=== PATIENT | male | born 1980 | race Caucasian/White ===

== ENCOUNTER 2020-06-14 11:41 | Emergency (ER) | payer OTHER ==
[2020-06-14] MEDS ORDERED: SODIUM CHLORIDE 0.9% 500 ML 500 ML IV ONE (12:17)
[2020-06-14] MEDS ORDERED: SODIUM CHLORIDE 0.9% 1,000 ML IV ONE (12:17)
[2020-06-14 12:23] LABS: Basophils % (A) 0 %; Eosinophils # (A) 0.5 k/uL (0-0.7); Eosinophils % (A) 6 %; HCT 40.5 % (39.0-53.0); HGB 13.3 gm/dL (13.0-17.5); Lymphocytes # (A) 1.9 k/uL (1.0-4.8); Lymphocytes % (A) 25 %; MCH 30.3 pg (25.0-35.0); MCHC 32.8 g/dL (31.0-37.0); MCV 92.3 fL (80.0-100.0); Mean Platelet Volume 9.3; Monocytes # (A) 0.5 k/uL (0-1.0); Monocytes % (A) 6 %; Neutrophils # (A) 4.6 k/uL (1.3-7.7); Neutrophils % (A) 61 %; Platelet Count 145 k/uL (150-450); RBC 4.39 m/uL (4.30-5.90); WBC 7.6 k/uL (3.8-10.6)
[2020-06-14] MEDS ORDERED: SODIUM CHLORIDE 0.9% 1,000 ML IV SCH (12:30)
[2020-06-14 12:34] LABS: ALT 30 U/L (4-49); AST 27 U/L (17-59); African American GFR (CKD) >90 (>60 ml/min/1.73 sqM); Albumin 4.2 g/dL (3.5-5.0); Alkaline Phosphatase 92 U/L (38-126); Anion Gap 5 mmol/L; Blood Urea Nitrogen 18 mg/dL (9-20); Calcium 9.7 mg/dL (8.4-10.2); Carbon Dioxide 27 mmol/L (22-30); Chloride 108 mmol/L (98-107); Glucose 110 mg/dL (74-99); Magnesium 2.1 mg/dL (1.6-2.3); Non-African American GFR(CKD) >90 (>60 ml/min/1.73 sqM); Potassium 3.9 mmol/L (3.5-5.1); Sodium 140 mmol/L (137-145); Total Bilirubin 0.3 mg/dL (0.2-1.3); Total Protein 6.9 g/dL (6.3-8.2)
[2020-06-14] MEDS ORDERED: ONDANSETRON 4 MG/2 ML VIAL IVP STA (12:41)
--- NOTE | 2020-06-14 13:32 | XR ---
EXAMINATION TYPE: XR abdomen acute w cxr DATE OF EXAM: 06/14/2020 COMPARISON: NONE HISTORY: Pain TECHNIQUE: Supine, upright, and left side down lateral decubitus views of the abdomen are obtained. FINDINGS: The lungs are clear. No pleural effusion or pneumothorax. No overt failure. The bowel gas pattern is nonspecific with no obstruction. Calcifications along the lateral margin the acetabulum can be associated with chronic acetabular labral tears. A mild concentric narrowing of th e hip joints. SI joints symmetric. Punctate calcification overlying the left kidney. IMPRESSION: Nonspecific abdomen. There is a punctate 1 to 2 mm calcification overlying the left renal outline whi ch could be associated with a small renal calculus correlate clinically.
--- NOTE | 2020-06-14 13:51 | ED ---
Nausea/Vomiting/Diarrhea HPI - General Source: patient Mode of arrival: ambulatory Limitations: no limitations <Daniela Lara - Last Filed: 06/15/20 06:07> <Nafisa Staples - Last Filed: 06/15/20 21:38> - General Chief complaint: Nausea/Vomiting/Diarrhea Stated complaint: vomiting x 7 days Time Seen by Provider: 06/14/20 11:58 - History of Present Illness Initial comments: 39yo male presnting today for cc of vomiting. Patient states he has been vomiting on and off x 7 days. He denies abdominal pain, bloody vomit, fevers, diarrhea, URI symptoms. Patient states he felt warm 1 night ago Denies flank pain, blood in urine or dysuria. Patient states he is going through a break up and feels the vomiting could be related to anxiety and stress. Denies chest pain, SOB, denies epigastric pain. Patient denies suicidal/homicidal ideations. Denies additional complaints. Upon arrival patient appears well no signs of distress. (Daniela Lara) - Related Data Home Medications Medication Instructions Recorded Confirmed No Known Home Medications 06/14/20 06/14/20 Allergies Allergy/AdvReac Type Severity Reaction Status Date / Time No Known Allergies Allergy Verified 06/14/20 13:23 Review of Systems ROS Other: All systems not noted in ROS Statement are negative. <Daniela Lara - Last Filed: 06/15/20 06:07> ROS Other: All systems not noted in ROS Statement are negative. <Nafisa Staples - Last Filed: 06/15/20 21:38> ROS Statement: Those systems with pertinent positive or pertinent negative responses have been documented in the HPI. Past Medical History Past Medical History: No Reported History History of Any Multi-Drug Resistant Organisms: None Reported Past Surgical History: No Surgical Hx Reported Past Psychological History: No Psychological Hx Reported Smoking Status: Current every day smoker Past Alcohol Use History: None Reported Past Drug Use History: Marijuana <Daniela Lara - Last Filed: 06/15/20 06:07> General Exam Limitations: no limitations <Daniela Lara - Last Filed: 06/15/20 06:07> - General Exam Comments Initial Comments: General: The patient is awake and alert, in no distress Eye: +3 mm pupils are equal, round and reactive to light, extra-ocular movements are intact. No nystagmus. There is normal conjunctiva bilaterally. No signs of icterus. Ears, nose, mouth and throat: There are moist mucous membranes and no oral lesions. Cardiovascular: There is a regular rate and rhythm. No murmur, rub or gallop is appreciated. Respiratory: Lungs are clear to auscultation, respirations are non-labored, breath sounds are equal. No wheezes, stridor, rales, or rhonchi. Gastrointestinal: Soft, non-distended, non-tender abdomen without masses or organomegaly noted. There is no rebound or guarding present. Musculoskeletal: Normal ROM, no tenderness. Strength 5/5. Sensation intact. Radial pulses equal bilaterally 2+. Neurological: A&O x 3. CN II-XII intact grossly, There are no obvious motor or sensory deficits. Coordination appears grossly intact. Speech is normal. Skin: Skin is warm and dry and no rashes or lesions are noted. Psychiatric: Cooperative, appropriate mood & affect, normal judgment. (Daniela Lara) Course Vital Signs 06/14/20 06/14/20 06/14/20 11:47 11:56 14:26 Temperature 98.1 F 97.9 F 97.1 F L Pulse Rate 94 71 Respiratory 18 16 Rate Blood Pressure 153/75 122/71 O2 Sat by Pulse 99 100 Oximetry Medical Decision Making - Lab Data Result diagrams: 06/14/20 11:58 06/14/20 12:14 <Daniela Lara - Last Filed: 06/15/20 06:07> - Lab Data Result diagrams: 06/14/20 11:58 06/14/20 12:14 <Nafisa Staples - Last Filed: 06/15/20 21:38> - Medical Decision Making 39yo presenting for on and off vomiting x 7 days, since break up earlier this month. Patient not vomiting in ER. Abdomen benign does not endorse abdominal pain. Patient labs stable He appears well nontoxic. Patient has a calcification noted on KUB otherwise no acute abnormalities. Patient UA no blood/signs of infection. Patient will be discharged with PCP f/u. Patient agreeable to care plan and discharge at this time. Case discussed wt Dr. Staples (Daniela Lara) I was available for consultation in the emergency department. The history and physical exam were done by the midlevel provider. I was consulted for this patients care. I reviewed the case with the midlevel provider and based on their presentation of the patient, I agree with the assessment, medical decision making and plan of care as documented. Chart was dictated using Circular dictation software. Attempts were made to correct any dictation errors however some typographical errors may persist. Patient was seen during a national state of emergency due to the Covid-19 pandemic. (Nafisa Staples) - Lab Data Lab Results 06/14/20 06/14/20 06/14/20 Range/Units 11:58 12:14 13:51 WBC 7.6 (3.8-10.6) k/uL RBC 4.39 (4.30-5.90) m/uL Hgb 13.3 (13.0-17.5) gm/dL Hct 40.5 (39.0-53.0) % MCV 92.3 (80.0-100.0) fL MCH 30.3 (25.0-35.0) pg MCHC 32.8 (31.0-37.0) g/dL RDW 13.0 (11.5-15.5) % Plt Count 145 L (150-450) k/uL Neutrophils % 61 % Lymphocytes % 25 % Monocytes % 6 % Eosinophils % 6 % Basophils % 0 % Neutrophils # 4.6 (1.3-7.7) k/uL Lymphocytes # 1.9 (1.0-4.8) k/uL Monocytes # 0.5 (0-1.0) k/uL Eosinophils # 0.5 (0-0.7) k/uL Basophils # 0.0 (0-0.2) k/uL Sodium 140 (137-145) mmol/L Potassium 3.9 (3.5-5.1) mmol/L Chloride 108 H (98-107) mmol/L Carbon Dioxide 27 (22-30) mmol/L Anion Gap 5 mmol/L BUN 18 (9-20) mg/dL Creatinine 0.86 (0.66-1.25) mg/dL Est GFR (CKD-EPI)AfAm >90 (>60 ml/min/1.73 sqM) Est GFR (CKD-EPI)NonAf >90 (>60 ml/min/1.73 sqM) Glucose 110 H (74-99) mg/dL Calcium 9.7 (8.4-10.2) mg/dL Magnesium 2.1 (1.6-2.3) mg/dL Total Bilirubin 0.3 (0.2-1.3) mg/dL AST 27 (17-59) U/L ALT 30 (4-49) U/L Alkaline Phosphatase 92 (38-126) U/L Total Protein 6.9 (6.3-8.2) g/dL Albumin 4.2 (3.5-5.0) g/dL Lipase 104 (23-300) U/L Urine Color Yellow Urine Appearance Clear (Clear) Urine pH 5.5 (5.0-8.0) Ur Specific [place] 1.037 H (1.001-1.035) Urine Protein Trace H (Negative) Urine Glucose (UA) Negative (Negative) Urine Ketones Negative (Negative) Urine Blood Negative (Negative) Urine Nitrite Negative (Negative) Urine Bilirubin Negative (Negative) Urine Urobilinogen 2.0 (<2.0) mg/dL Ur Leukocyte Esterase Negative (Negative) Disposition Is patient prescribed a controlled substance at d/c from ED?: No Time of Disposition: 13:52 <Daniela Lara - Last Filed: 06/15/20 06:07> <Nafisa Staples - Last Filed: 06/15/20 21:38> Clinical Impression: Vomiting Disposition: HOME SELF-CARE Condition: Good Instructions (If sedation given, give patient instructions): Acute Nausea and Vomiting (ED) Additional Instructions: Please use medication as discussed. Please follow-up with family doctor in the next 2 days. Please return to emergency room if the symptoms increase or worsen or for any other concerns. Referrals: None,Stated [Primary Care Provider] - [facility]-2 days
[2020-06-14 14:12] LABS: Appearance,Urine Clear (Clear); Bilirubin,Urine Negative (Negative); Blood,Urine Negative (Negative); Color,Urine Yellow; Glucose,Urine (UA) Negative (Negative); Ketones,Urine Negative (Negative); Leukocyte Esterase,Urine Negative (Negative); Nitrite,Urine Negative (Negative); PH, Urine 5.5 (5.0-8.0); Protein,Urine Trace (Negative); Specific Gravity,Urine 1.037 (1.001-1.035)
[2020-06-14 14:28] VITALS: BP 122/71; PULSE 71; RESP 16; TEMP 97.1
== END 2020-06-14 14:33 | disposition home or self-care (01) ==
LOC: EC 11:41
DX: R11.2 Nausea with vomiting, unspecified (principal); R93.5 Abnormal findings on diagnostic imaging of other abdominal regions, including retroperitoneum; F17.200 Nicotine dependence, unspecified, uncomplicated
CPT/HCPCS: 36415; 80053; 83690; 83735; 85025; 81003; 74022; 99284; 96374; 96361; J2405

== ENCOUNTER 2021-01-11 20:15 | Emergency (ER) | payer OTHER ==
[2021-01-11 20:22] VITALS: RESP 18; TEMP 98.3
--- NOTE | 2021-01-11 20:27 | ED ---
General Adult HPI - General Chief complaint: Chest Pain Stated complaint: Chest Pain Time Seen by Provider: 01/11/21 20:23 Source: patient Mode of arrival: wheelchair Limitations: no limitations - History of Present Illness Initial comments: Patient presents the ED stating that he awoke at 11 AM this morning (about 9.5 hours ago) with diffuse chest pain, and he states that his chest pain has been constant since then. Patient admits to having mild associated dyspnea as well. Patient states that he has been having similar chest pain intermittently for the past 2 years or so. Patient states that he was scheduled to see a painting and coating worker last week, but he states that he missed his appointment. Patient denies radiation of his pain, trauma or injury, fever or chills, headache, focal numbness/weakness/neuro deficit, neck/arm/jaw/back pain, pleuritic pain, cough or cold symptoms, palpitations, dizziness, nausea/vomiting/diaphoresis, abdominal pain, dysuria or urinary symptoms, leg or calf swelling or pain, or any other symptoms or complaints. 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 Patient's only other identifiable CAD risk factor is that he is a smoker. - Related Data Home Medications Medication Instructions Recorded Confirmed No Known Home Medications 06/14/20 01/11/21 Allergies Allergy/AdvReac Type Severity Reaction Status Date / Time No Known Allergies Allergy Verified 01/11/21 21:01 Review of Systems ROS Statement: Those systems with pertinent positive or pertinent negative responses have been documented in the HPI. ROS Other: All systems not noted in ROS Statement are negative. Past Medical History Past Medical History: No Reported History History of Any Multi-Drug Resistant Organisms: None Reported Past Surgical History: No Surgical Hx Reported Past Psychological History: No Psychological Hx Reported Smoking Status: Current every day smoker Past Alcohol Use History: Rare Past Drug Use History: Marijuana General Exam Limitations: no limitations General appearance: alert, in no apparent distress Head exam: Present: atraumatic, normocephalic Eye exam: Present: normal appearance, EOMI ENT exam: Present: mucous membranes moist Neck exam: Present: other (Trachea is in midline) Respiratory exam: Present: normal lung sounds bilaterally. Absent: respiratory distress, wheezes, rales, rhonchi, stridor, chest wall tenderness Cardiovascular Exam: Present: regular rate, normal rhythm, normal heart sounds, other (Normal radial pulses bilaterally) GI/Abdominal exam: Present: soft. Absent: distended, tenderness, guarding Extremities exam: Present: other (Negative Homans sign bilaterally). Absent: tenderness, pedal edema, calf tenderness Neurological exam: Present: alert, oriented X3. 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 Patient remains alert and breathing comfortably with a normal room air oxygen saturation. Patient's vital signs have been stable while in the ED. Patient is aware of his test results, and he feels comfortable going home at this time. Patient was counseled about chest pain, and he was clearly explained return and follow-up instructions. Patient was instructed to follow up closely with his primary care provider. EKG Findings - EKG Comments: EKG Findings:: Normal sinus rhythm, ventricular rate of 63 bpm, no ectopy, normal AL and QRS intervals, normal QT interval, normal axis, moderate voltage criteria for LVH, no ST or T-wave abnormality Medical Decision Making - Medical Decision Making Patient's ED workup is fairly unremarkable. Patient's EKG is negative for acute ischemic findings. Patient's chest x-ray is unremarkable. Patient's d-dimer and troponin are negative. Patient reports having constant chest pain since 11 AM this morning, and his troponin is negative, which effectively rules him out for a myocardial infarction. I do not suspect that the patient's symptoms are likely cardiac in etiology. I do not suspect an emergent medical condition. Will discharge patient home at this time with instructions for close outpatient PCP follow-up. Patient was instructed to have low threshold for return to the ED should his symptoms worsen. - Lab Data Result diagrams: 01/11/21 20:48 01/11/21 20:48 Lab Results 01/11/21 01/11/21 01/11/21 Range/Units 20:48 20:48 20:48 WBC 6.8 (3.8-10.6) k/uL RBC 4.57 (4.30-5.90) m/uL Hgb 14.4 (13.0-17.5) gm/dL Hct 42.0 (39.0-53.0) % MCV 91.9 (80.0-100.0) fL MCH 31.5 (25.0-35.0) pg MCHC 34.3 (31.0-37.0) g/dL RDW 13.3 (11.5-15.5) % Plt Count 175 (150-450) k/uL MPV 8.1 Neutrophils % 56 % Lymphocytes % 33 % Monocytes % 5 % Eosinophils % 4 % Basophils % 0 % Neutrophils # 3.8 (1.3-7.7) k/uL Lymphocytes # 2.3 (1.0-4.8) k/uL Monocytes # 0.3 (0-1.0) k/uL Eosinophils # 0.3 (0-0.7) k/uL Basophils # 0.0 (0-0.2) k/uL PT 10.3 (9.0-12.0) sec INR 1.0 (<1.2) APTT 23.1 (22.0-30.0) sec D-Dimer 0.21 (<0.60) mg/L FEU Sodium 138 (137-145) mmol/L Potassium 3.9 (3.5-5.1) mmol/L Chloride 106 (98-107) mmol/L Carbon Dioxide 25 (22-30) mmol/L Anion Gap 7 mmol/L BUN 23 H (9-20) mg/dL Creatinine 0.85 (0.66-1.25) mg/dL Est GFR (CKD-EPI)AfAm >90 (>60 ml/min/1.73 sqM) Est GFR (CKD-EPI)NonAf >90 (>60 ml/min/1.73 sqM) Glucose 100 H (74-99) mg/dL Calcium 9.8 (8.4-10.2) mg/dL Magnesium 1.8 (1.6-2.3) mg/dL Total Bilirubin 0.5 (0.2-1.3) mg/dL AST 27 (17-59) U/L ALT 21 (4-49) U/L Alkaline Phosphatase 65 (38-126) U/L Troponin I (0.000-0.034) ng/mL NT-Pro-B Natriuret Pep pg/mL Total Protein 6.8 (6.3-8.2) g/dL Albumin 4.2 (3.5-5.0) g/dL 01/11/21 01/11/21 Range/Units 20:48 20:48 WBC (3.8-10.6) k/uL RBC (4.30-5.90) m/uL Hgb (13.0-17.5) gm/dL Hct (39.0-53.0) % MCV (80.0-100.0) fL MCH (25.0-35.0) pg MCHC (31.0-37.0) g/dL RDW (11.5-15.5) % Plt Count (150-450) k/uL MPV Neutrophils % % Lymphocytes % % Monocytes % % Eosinophils % % Basophils % % Neutrophils # (1.3-7.7) k/uL Lymphocytes # (1.0-4.8) k/uL Monocytes # (0-1.0) k/uL Eosinophils # (0-0.7) k/uL Basophils # (0-0.2) k/uL PT (9.0-12.0) sec INR (<1.2) APTT (22.0-30.0) sec D-Dimer (<0.60) mg/L FEU Sodium (137-145) mmol/L Potassium (3.5-5.1) mmol/L Chloride (98-107) mmol/L Carbon Dioxide (22-30) mmol/L Anion Gap mmol/L BUN (9-20) mg/dL Creatinine (0.66-1.25) mg/dL Est GFR (CKD-EPI)AfAm (>60 ml/min/1.73 sqM) Est GFR (CKD-EPI)NonAf (>60 ml/min/1.73 sqM) Glucose (74-99) mg/dL Calcium (8.4-10.2) mg/dL Magnesium (1.6-2.3) mg/dL Total Bilirubin (0.2-1.3) mg/dL AST (17-59) U/L ALT (4-49) U/L Alkaline Phosphatase (38-126) U/L Troponin I <0.012 (0.000-0.034) ng/mL NT-Pro-B Natriuret Pep 29 pg/mL Total Protein (6.3-8.2) g/dL Albumin (3.5-5.0) g/dL - Radiology Data Radiology results: image reviewed (Chest x-ray is negative) Disposition Clinical Impression: Chest pain Disposition: HOME SELF-CARE Condition: Stable Instructions (If sedation given, give patient instructions): Chest Pain (ED) Additional Instructions: Return to the ER immediately should you develop new or worsening pain, increased shortness of breath, vomiting, a fever, feeling dizzy or faint, or new or worsening symptoms. Follow up closely with your primary care provider. Is patient prescribed a controlled substance at d/c from ED?: No Referrals: Jose Tello DO [Primary Care Provider] - 1-2 days Time of Disposition: 22:02
--- NOTE | 2021-01-11 20:56 | XR ---
EXAMINATION TYPE: XR chest 2V DATE OF EXAM: 01/11/2021 COMPARISON: NONE HISTORY: Chest pain TECHNIQUE: 2 views FINDINGS: Heart and mediastinum are normal. Lungs are clear. Diaphragm is normal. Bony thorax appears normal. IMPRESSION: Normal chest.
[2021-01-11 21:02] LABS: Basophils % (A) 0 %; Eosinophils # (A) 0.3 k/uL (0-0.7); Eosinophils % (A) 4 %; HGB 14.4 gm/dL (13.0-17.5); Lymphocytes # (A) 2.3 k/uL (1.0-4.8); Lymphocytes % (A) 33 %; MCH 31.5 pg (25.0-35.0); MCHC 34.3 g/dL (31.0-37.0); MCV 91.9 fL (80.0-100.0); Mean Platelet Volume 8.1; Monocytes # (A) 0.3 k/uL (0-1.0); Monocytes % (A) 5 %; Neutrophils # (A) 3.8 k/uL (1.3-7.7); Neutrophils % (A) 56 %; Platelet Count 175 k/uL (150-450); RBC 4.57 m/uL (4.30-5.90); RDW 13.3 % (11.5-15.5); WBC 6.8 k/uL (3.8-10.6)
[2021-01-11 21:08] LABS: ALT 21 U/L (4-49); AST 27 U/L (17-59); African American GFR (CKD) >90 (>60 ml/min/1.73 sqM); Albumin 4.2 g/dL (3.5-5.0); Alkaline Phosphatase 65 U/L (38-126); Anion Gap 7 mmol/L; Blood Urea Nitrogen 23 mg/dL (9-20); Calcium 9.8 mg/dL (8.4-10.2); Carbon Dioxide 25 mmol/L (22-30); Chloride 106 mmol/L (98-107); Glucose 100 mg/dL (74-99); Magnesium 1.8 mg/dL (1.6-2.3); Non-African American GFR(CKD) >90 (>60 ml/min/1.73 sqM); Potassium 3.9 mmol/L (3.5-5.1); Sodium 138 mmol/L (137-145); Total Bilirubin 0.5 mg/dL (0.2-1.3); Total Protein 6.8 g/dL (6.3-8.2)
[2021-01-11 21:14] LABS: D-Dimer 0.21 mg/L FEU (<0.60); Partial Thromboplastin Time 23.1 sec (22.0-30.0); Prothrombin Time 10.3 sec (9.0-12.0)
[2021-01-11 22:10] VITALS: BP 147/89; PULSE 60
== END 2021-01-11 22:09 | disposition home or self-care (01) ==
LOC: EC 20:15
DX: R07.9 Chest pain, unspecified (principal); R06.00 Dyspnea, unspecified; F17.200 Nicotine dependence, unspecified, uncomplicated
CPT/HCPCS: 36415; 71046; 80053; 83735; 83880; 84484; 85025; 85379; 85610; 85730; 93005; 99285

== ENCOUNTER 2021-04-02 08:32 | Inpatient (IN) | payer OTHER ==
[2021-04-02] MEDS ORDERED: ASPIRIN 81 MG PO STA (08:42)
[2021-04-02] MEDS ORDERED: NITROGLYCERIN SL TABS 0.4 MG TAB SUBLINGUAL STA ×3 (08:42)
--- NOTE | 2021-04-02 08:44 | ED ---
General Adult HPI - General Chief complaint: Chest Pain Stated complaint: chest pain Time Seen by Provider: 04/02/21 08:37 Source: patient, RN notes reviewed Mode of arrival: wheelchair Limitations: no limitations - History of Present Illness Initial comments: Patient is a pleasant 40-year-old male presenting to the emergency Department with complaints of chest discomfort. Onset of symptoms was around an hour ago. Patient has had similar symptoms several times in the past. Patient has had negative recent stress test and is scheduled to have heart catheterization on the of this month with Dr. Fine. Discomfort is somewhat severe at this ti me. Discomfort feels like squeezing without radiation. There is mild associated nausea, dyspnea, and diaphoresis. No leg pain or leg swelling. No cough or fever. - Related Data Home Medications Medication Instructions Recorded Confirmed Aspirin EC [Ecotrin Low Dose] 81 mg PO QAM 04/02/21 04/02/21 Metoprolol Tartrate [Lopressor] 25 mg PO QAM 04/02/21 04/02/21 Allergies Allergy/AdvReac Type Severity Reaction Status Date / Time No Known Allergies Allergy Verified 04/02/21 09:53 Review of Systems ROS Statement: Those systems with pertinent positive or pertinent negative responses have been documented in the HPI. ROS Other: All systems not noted in ROS Statement are negative. Constitutional: Denies: fever Eyes: Denies: eye pain ENT: Denies: ear pain Respiratory: Reports: as per HPI. Denies: cough Cardiovascular: Reports: as per HPI, chest pain Endocrine: Denies: fatigue Gastrointestinal: Reports: nausea. Denies: abdominal pain, vomiting Genitourinary: Denies: urgency Musculoskeletal: Denies: back pain Skin: Denies: rash Neurological: Denies: weakness Past Medical History Past Medical History: No Reported History History of Any Multi-Drug Resistant Organisms: None Reported Past Surgical History: No Surgical Hx Reported Past Psychological History: No Psychological Hx Reported Smoking Status: Current every day smoker Past Alcohol Use History: Rare Past Drug Use History: Marijuana General Exam Limitations: no limitations General appearance: alert, in no apparent distress Head exam: Present: normocephalic Eye exam: Present: normal appearance Neck exam: Present: normal inspection Respiratory exam: Present: normal lung sounds bilaterally, chest wall tenderness Cardiovascular Exam: Present: regular rate, normal rhythm, normal heart sounds Expanded Peripheral pulses: 2+: Radial (R), Radial (L), Dorsalis Pedis (R), Dorsalis Pedis (L) GI/Abdominal exam: Present: soft. Absent: tenderness Extremities exam: Present: normal inspection. Absent: pedal edema, calf tenderness Neurological exam: Present: alert Psychiatric exam: Present: normal affect, normal mood Skin exam: Present: normal color Course Vital Signs 04/02/21 08:33 Temperature 97.2 F L Pulse Rate 50 L Respiratory 18 Rate Blood Pressure 154/87 O2 Sat by Pulse 100 Oximetry - Reevaluation(s) Reevaluation #1: 04/02/21 08:45 Patient adds that his heart rate is normally low, in the 50s or 60s. Patient was also recently started on metoprolol. EKG Findings - EKG Comments: EKG Findings:: Sinus bradycardia 46. AK 172. QRS 110. QT 456. QTc 395. Normal axis. LVH with prominent T waves. Medical Decision Making - Medical Decision Making Patient reevaluated and symptom-free. Patient and family updated on results and plan. Case discussed with Dr. Steel, covering for Dr. Tello, who will admit. - Lab Data Result diagrams: 04/02/21 09:16 04/02/21 09:16 Lab Results 04/02/21 04/02/21 04/02/21 Range/Units 09:16 09:16 09:16 WBC 5.8 (3.8-10.6) k/uL RBC 4.72 (4.30-5.90) m/uL Hgb 14.1 (13.0-17.5) gm/dL Hct 43.7 (39.0-53.0) % MCV 92.6 (80.0-100.0) fL MCH 29.9 (25.0-35.0) pg MCHC 32.2 (31.0-37.0) g/dL RDW 13.2 (11.5-15.5) % Plt Count 167 (150-450) k/uL MPV 8.5 Neutrophils % 46 % Lymphocytes % 40 % Monocytes % 6 % Eosinophils % 6 % Basophils % 1 % Neutrophils # 2.7 (1.3-7.7) k/uL Lymphocytes # 2.3 (1.0-4.8) k/uL Monocytes # 0.3 (0-1.0) k/uL Eosinophils # 0.4 (0-0.7) k/uL Basophils # 0.0 (0-0.2) k/uL PT 10.3 (9.0-12.0) sec INR 1.0 (<1.2) APTT 24.3 (22.0-30.0) sec Sodium 140 (137-145) mmol/L Potassium 4.2 (3.5-5.1) mmol/L Chloride 107 (98-107) mmol/L Carbon Dioxide 25 (22-30) mmol/L Anion Gap 8 mmol/L BUN 14 (9-20) mg/dL Creatinine 0.86 (0.66-1.25) mg/dL Est GFR (CKD-EPI)AfAm >90 (>60 ml/min/1.73 sqM) Est GFR (CKD-EPI)NonAf >90 (>60 ml/min/1.73 sqM) Glucose 98 (74-99) mg/dL Calcium 10.1 (8.4-10.2) mg/dL Magnesium 1.9 (1.6-2.3) mg/dL Total Bilirubin 0.6 (0.2-1.3) mg/dL AST 22 (17-59) U/L ALT 16 (4-49) U/L Alkaline Phosphatase 76 (38-126) U/L Troponin I (0.000-0.034) ng/mL NT-Pro-B Natriuret Pep pg/mL Total Protein 7.2 (6.3-8.2) g/dL Albumin 4.5 (3.5-5.0) g/dL 04/02/21 04/02/21 Range/Units 09:16 09:16 WBC (3.8-10.6) k/uL RBC (4.30-5.90) m/uL Hgb (13.0-17.5) gm/dL Hct (39.0-53.0) % MCV (80.0-100.0) fL MCH (25.0-35.0) pg MCHC (31.0-37.0) g/dL RDW (11.5-15.5) % Plt Count (150-450) k/uL MPV Neutrophils % % Lymphocytes % % Monocytes % % Eosinophils % % Basophils % % Neutrophils # (1.3-7.7) k/uL Lymphocytes # (1.0-4.8) k/uL Monocytes # (0-1.0) k/uL Eosinophils # (0-0.7) k/uL Basophils # (0-0.2) k/uL PT (9.0-12.0) sec INR (<1.2) APTT (22.0-30.0) sec Sodium (137-145) mmol/L Potassium (3.5-5.1) mmol/L Chloride (98-107) mmol/L Carbon Dioxide (22-30) mmol/L Anion Gap mmol/L BUN (9-20) mg/dL Creatinine (0.66-1.25) mg/dL Est GFR (CKD-EPI)AfAm (>60 ml/min/1.73 sqM) Est GFR (CKD-EPI)NonAf (>60 ml/min/1.73 sqM) Glucose (74-99) mg/dL Calcium (8.4-10.2) mg/dL Magnesium (1.6-2.3) mg/dL Total Bilirubin (0.2-1.3) mg/dL AST (17-59) U/L ALT (4-49) U/L Alkaline Phosphatase (38-126) U/L Troponin I <0.012 (0.000-0.034) ng/mL NT-Pro-B Natriuret Pep 50 pg/mL Total Protein (6.3-8.2) g/dL Albumin (3.5-5.0) g/dL - Radiology Data Radiology results: image reviewed (Chest x-ray shows no acute process) Disposition Clinical Impression: Chest pain Disposition: ADMITTED IP TO THIS HOSP Is patient prescribed a controlled substance at d/c from ED?: No Referrals: Jose Tello DO [Primary Care Provider] - 1-2 days Decision Time: 10:54
--- NOTE | 2021-04-02 09:21 | XR ---
EXAMINATION TYPE: XR chest 2V DATE OF EXAM: 04/02/2021 COMPARISON: 01/11/2021 HISTORY: Chest pain TECHNIQUE: Frontal and lateral views of the chest are obtained. FINDINGS: There is no focal air space opacity. No evidence for pneumothorax. No pleural effusion. The cardiac silhouette size is within normal limits. The osseous structures are grossly intact. IMPRESSION: 1. No acute cardiopulmonary process.
[2021-04-02 09:24] LABS: Basophils % (A) 1 %; Eosinophils # (A) 0.4 k/uL (0-0.7); Eosinophils % (A) 6 %; HCT 43.7 % (39.0-53.0); HGB 14.1 gm/dL (13.0-17.5); Lymphocytes # (A) 2.3 k/uL (1.0-4.8); Lymphocytes % (A) 40 %; MCH 29.9 pg (25.0-35.0); MCHC 32.2 g/dL (31.0-37.0); MCV 92.6 fL (80.0-100.0); Mean Platelet Volume 8.5; Monocytes # (A) 0.3 k/uL (0-1.0); Monocytes % (A) 6 %; Neutrophils # (A) 2.7 k/uL (1.3-7.7); Neutrophils % (A) 46 %; Platelet Count 167 k/uL (150-450); RBC 4.72 m/uL (4.30-5.90); RDW 13.2 % (11.5-15.5); WBC 5.8 k/uL (3.8-10.6)
[2021-04-02 09:33] LABS: ALT 16 U/L (4-49); AST 22 U/L (17-59); African American GFR (CKD) >90 (>60 ml/min/1.73 sqM); Albumin 4.5 g/dL (3.5-5.0); Alkaline Phosphatase 76 U/L (38-126); Anion Gap 8 mmol/L; Blood Urea Nitrogen 14 mg/dL (9-20); Calcium 10.1 mg/dL (8.4-10.2); Carbon Dioxide 25 mmol/L (22-30); Chloride 107 mmol/L (98-107); Glucose 98 mg/dL (74-99); Magnesium 1.9 mg/dL (1.6-2.3); Non-African American GFR(CKD) >90 (>60 ml/min/1.73 sqM); Potassium 4.2 mmol/L (3.5-5.1); Sodium 140 mmol/L (137-145); Total Bilirubin 0.6 mg/dL (0.2-1.3); Total Protein 7.2 g/dL (6.3-8.2)
[2021-04-02 09:38] LABS: Partial Thromboplastin Time 24.3 sec (22.0-30.0); Prothrombin Time 10.3 sec (9.0-12.0)
[2021-04-02] MEDS ORDERED: NITROGLYCERIN SL TABS 0.4 MG TAB SUBLINGUAL PRN (10:54)
[2021-04-02] MEDS ORDERED: HEPARIN SODIUM 1,000 UN/ML (10ML VL) IV PRN (14:07)
[2021-04-02] MEDS ORDERED: HEPARIN SODIUM 1,000 UN/ML (10ML VL) IV ONE (14:07)
[2021-04-02] MEDS ORDERED: HEPARIN SOD,PORK IN 0.45% NACL 25,000 UNIT in 0.45% NACL 1 250ML.BAG IV SCH (14:15)
[2021-04-02] MEDS: NITROGLYCERIN OINT 1 INCH/GM PACKET TOPICAL SCH ×3 (14:30→23:21)
[2021-04-02] MEDS ORDERED: TEMAZEPAM 15 MG CAP PO PRN (14:39)
[2021-04-02] MEDS ORDERED: HYDROmorphone 0.5 MG/0.5 ML SYRINGE IVP PRN (14:39)
[2021-04-02] MEDS ORDERED: ALPRAZolam 0.25 MG TAB PO PRN (14:39)
[2021-04-02] MEDS ORDERED: HYDROcodone/APAP 5-325MG 1 EACH TAB PO PRN (14:39)
[2021-04-02] MEDS ORDERED: ATORVASTATIN 80 MG TAB PO SCH (14:45)
[2021-04-02] MEDS: NICOTINE 14MG/24HR PATCH TRANSDERM SCH (15:08)
[2021-04-02] MEDS: PANTOPRAZOLE 40 MG TABLET PO SCH (15:08)
--- NOTE | 2021-04-02 15:19 | HP ---
HISTORY AND PHYSICAL DATE OF SERVICE: 04/02/2021. CHIEF COMPLAINT: Chest pain. HISTORY OF PRESENT ILLNESS: This 40-year-old gentleman with a past medical history of no significant medical issues being followed Dr. Jose Tello in the outpatient setting, is complaining of chest pain. The pain was felt in the anterior part of the chest and without much radiation. The patient had multiple episodes of similar pain. Patient had a stress test apparently early this year which was negative and seen by Dr. Balta Fine and scheduled for a cardiac catheterization April 16. The EKG showed sinus bradycardia, ST-T changes. Initial troponins are negative, however the repeat troponins was 0.515 indicating acute wki-DM-eubwsus-elevation myocardial infarction. Patient is started on IV heparin. PAST MEDICAL HISTORY: No history of any significant cardiovascular illness in the past other than mentioned. MEDICATIONS: Metoprolol 25 mg q.a.m., aspirin 81 mg q.a.m. ALLERGIES: None. FAMILY HISTORY: No history of heart disease or strokes in the family. SOCIAL HISTORY: History of smoking, continued half pack of cigarettes a day, history of THC. REVIEW OF SYSTEMS: ENT: No diminished vision. No diminished hearing. Cardio system: As mentioned earlier. Respiration as mentioned earlier. GI no nausea or vomiting, no diarrhea. : No dysuria. NERVOUS SYSTEM: No numbness, weakness. ALLERGY/IMMUNOLOGY: No asthma or hayfever. MUSCULOSKELETAL as mentioned earlier. HEMATOLOGY/ONCOLOGY: No history of anemia. ENDOCRINE: No history of diabetes or hypothyroidism. CONSTITUTIONAL: As mentioned earlier. DERMATOLOGY negative. RHEUMATOLOGY: As mentioned earlier. PSYCHIATRIC: As mentioned earlier. PHYSICAL EXAMINATION: Alert and oriented times three. Pulse 48. Blood pressure 127/77, respiration 20, temperature 97.2, pulse ox 98% on room air. HEENT: Conjunctivae normal. Oral mucosa moist. NECK is no jugular venous distention. No carotid bruit. No lymph node enlargement. CARDIOVASCULAR system: S1, S2. No S3, no S4. RESPIRATION: Breath sounds diminished in the bases. No rhonchi. No crackles. ABDOMEN: Soft, nontender. No mass palpable. LEGS: No edema, no swelling. NERVOUS SYSTEM: Higher functions as mentioned earlier. Moves all 4 limbs. No focal motor or sensory deficits. LYMPHATICS: No lymph nodes palpable in the neck, axillae or groin. SKIN: No ulcer, no rashes and no bleeding. JOINTS: No active deforming arthropathy. LAB: CBC within normal limits. Troponins as mentioned earlier. EKG reviewed personally. The chest x-ray which was reviewed personally showed no acute cardiovascular illness. IMPRESSION: 1. Chest pain possible acute ddx-MH-acdbvip-elevation myocardial infarction. 2. Troponin 0.515. 3. Sinus bradycardia. 4. History of nicotine dependence. 5. History of THC. RECOMMENDATIONS AND DISCUSSION: In this 40-year-old gentleman who presented with multiple complex medical issues, we will monitor the patient closely, continue the current medications, management and symptomatic treatment. Continue with antiplatelet agents, Lipitor, IV heparin, beta blockers, cardiology consultation for possible cardiac cath. Guarded prognosis because of multiple complex medical problems. Smoking cessation has been advised and I have also recommend the patient follow closely with Dr. Tello closely in the outpatient setting. See orders for further details. MMODL / IJN: [id number] /
[2021-04-02] MEDS ORDERED: IV FLUID CONTINUATION 950 ML IV ONE (18:26)
[2021-04-02] MEDS ORDERED: LIDOCAINE 1% INJ 10MG/ML (20 ML MDV) ONE (18:38)
[2021-04-02] MEDS ORDERED: VERAPAMIL 2.5 MG/ML 2 ML AMP ONE (18:42)
[2021-04-02] MEDS ORDERED: HEPARIN SODIUM 1,000 UN/ML (10ML VL) ONE (18:43)
[2021-04-02] MEDS ORDERED: MIDAZOLAM 2 MG/2 ML VIAL IV ONE (18:50)
[2021-04-02] MEDS ORDERED: LIDOCAINE 1% INJ 10MG/ML (20 ML MDV) SQ ONE (18:52)
[2021-04-02] MEDS ORDERED: IOPAMIDOL-370 100ML BTL INJ ONE (19:09)
[2021-04-02] MEDS ORDERED: RX INFO: IV CONTRAST WAS GIVEN 1 EACH MISC MISCELLANE PRN (19:22)
[2021-04-02] MEDS ORDERED: HEPARIN SOD,PORK IN 0.45% NACL 25,000 UNIT in 0.45% NACL 1 250ML.BAG IV ONE (19:32)
[2021-04-02] MEDS: SODIUM CHLORIDE 0.9% 1,000 ML IV SCH (20:40)
--- NOTE | 2021-04-02 22:22 | CONS ---
CONSULTATION Austin Sanchez is a 40-year-old patient well known to me. I saw him in November when he went to [facility] with chest pain. He had a negative stress echocardiogram, walked for 10 minutes, heart rate of more than 150 beats per minute. However, he continued to have recurrent chest pain came back about 6 weeks later or so and was advised to have a cardiac cath given his recurrent chest pain in spite of a previous negative stress test. His cardiac cath was scheduled for the next morning, but he signed out against medical advice the day before and then showed up in my office last week. I explained to him the rationale for cardiac cath given his recurrent episodes of chest pain and he was set up for a cardiac cath on April 15. However, he came in today to the hospital with chest pain that seemed to occur while he was at rest. In fact, he woke up and started having discomfort in the chest. With these symptoms he came in. His 3 sets of troponins suggest that there is a trend going up. The last troponin was 1.040. Initial 1 was normal, less than 0.012. Given the rising troponin and chest pain, even though EKG was unremarkable, he was advised cardiac cath after due discussion regarding risks, benefits, and options. PAST MEDICAL HISTORY: Remarkable for recurrent hospitalizations and a negative dobutamine echo. SOCIAL HISTORY: The patient is a smoker. He uses marijuana and also had done some heroin activity when I first saw him in November. MEDICATIONS: Medications at home include: Aspirin 81 mg daily and metoprolol tartrate 25 mg daily. ALLERGIES: No known drug allergies. PHYSICAL EXAMINATION: On examination, blood pressure was 128/70, pulse rate is 50 per minute. HEENT unremarkable. Fundus was not examined by me. Neck is supple. No JVD. I do not hear a carotid bruit. There is no thyromegaly. Heart exam reveals S1, S2 heard normally. No rub, murmur or gallop. Lungs are clear. Abdomen is soft, nontender. Lower extremities reveal normal pulses. No edema. Central nervous system is normal. EKG revealed sinus bradycardia. No acute changes. IMPRESSION: 1. Non-ST elevation RI. 2. History of recurrent chest pain, was scheduled for cardiac cath electively on the . 3. Hospitalization recently with a negative stress echo. RECOMMENDATIONS: Advised coronary angiography and intervention based on findings. Risks, benefits, options explained and I will proceed with the procedure today. MMODL / IJN: [id number] /
--- NOTE | 2021-04-02 22:26 | CC ---
CARDIAC CATHETERIZATION REPORT DATE OF SERVICE: 04/02/2021 PROCEDURE: Left heart catheterization, coronary angiography and left ventriculography. PERFORMED BY: Dr. Balta Fine. Moderate conscious sedation time was 23 minutes. Patient was administered Versed. Oxygen saturation, hemodynamics and EKG were monitored closely. CLINICAL INFORMATION: Mr. Austin Sanchez is a 40-year-old gentleman admitted to the hospital with chest pain and troponin elevation suggestive of xpj-QQ-ljsvamoge NV. He was advised cardiac cath after due discussion regarding risks, benefits, options. PROCEDURE NOTE: Under local anesthesia and strict aseptic precautions, a 6-Luxembourgish introducer was placed in the right radial artery. Using JL3.5 and JR4 catheters, I performed coronary angiography and a pigtail catheter was used to check LV pressures. LV gram was performed in 30-degree PABON projection. The sheath was taken out and a TR band applied as per protocol. The saturation of the fingers of the right hand was more than 93%. The patient tolerated procedure well without complications. CARDIAC CATHETERIZATION FINDINGS: The left ventricular end-diastolic pressure was 8 mmHg without any gradient across the aortic valve. CORONARY ANGIOGRAPHY FINDINGS: RIGHT CORONARY ARTERY: Large dominant vessel. No significant disease. Distally bifurcates into a larger PDA and a smaller PLV, both of which supply a sizable amount of myocardium. The PDA tapers into a small branch distally, but no significant disease noted. There was a good blush noted. LEFT MAIN CORONARY ARTERY: Short, patent, disease-free vessel that bifurcates into LAD and circumflex. No significant disease in the left main coronary artery. LEFT ANTERIOR DESCENDING CORONARY ARTERY: Good-caliber vessel extends along the anterior wall, gives off septal and diagonal branches. Very proximally there is a diagonal branch that comes off from the LAD and then there are 2 other smaller diagonal branches and one septal branch. No significant disease in the entire LAD system. The LAD runs all the way to the apex, curves over the apex to supply the inferoapical portion of left ventricle. There are minor irregularities but no significant disease is noted. LEFT POSTERIOR CIRCUMFLEX CORONARY ARTERY: This is technically a nondominant yet good- caliber, good-distribution vessel that gives off a small obtuse marginal proximally. Then there is a large obtuse marginal in the mid portion that runs laterally and supplies a sizable amount of myocardium. Then distally the vessel runs in the AV groove, bifurcates into 2 branches, mostly in the PLV distribution. There are minor irregularities but no significant disease noted. LEFT VENTRICULOGRAM: This was performed in 30-degree PABON projection and revealed left ventricle is of normal size with good systolic function without any segmental wall motion abnormality. FINAL IMPRESSION: This patient has a right-dominant system, normal filling pressures. No gradient across aortic valve. There is no significant obstructive coronary artery disease noted. Ejection fraction is about 55% without mitral regurgitation. RECOMMENDATIONS: Findings were discussed with the patient and his . I am recommending that we will obtain a D-dimer, continue heparin until tomorrow, and check additional troponin levels. This may be a MINOCA, which is myocardial infarction, no obstructive coronary arteries. I discussed my thoughts in detail with the patient and his . I expect he will be discharged soon, but we will check a D-dimer to make sure there is no other etiology like pulmonary embolism, which seems very unlikely in this clinical setting. Moderate conscious sedation time was 23 minutes. KELSEY / CHIP: [id number] /
[2021-04-03] MEDS: NITROGLYCERIN OINT 1 INCH/GM PACKET TOPICAL SCH (05:50)
[2021-04-03] MEDS: PANTOPRAZOLE 40 MG TABLET PO SCH (06:28)
[2021-04-03] MEDS: NICOTINE 14MG/24HR PATCH TRANSDERM SCH ×2 (08:09→12:22)
[2021-04-03] MEDS: METOPROLOL TARTRATE 12.5 MG TAB PO SCH (08:09)
[2021-04-03] MEDS: ASPIRIN 81 MG PO SCH (08:09)
[2021-04-03] MEDS: ATORVASTATIN 20 MG TAB PO SCH (08:09)
[2021-04-03] MEDS: SODIUM CHLORIDE 0.9% 1,000 ML IV SCH (08:10)
[2021-04-03 08:57] LABS: Basophils % (A) 0 %; Eosinophils # (A) 0.3 k/uL (0-0.7); Eosinophils % (A) 4 %; HCT 41.4 % (39.0-53.0); HGB 13.5 gm/dL (13.0-17.5); Lymphocytes # (A) 1.7 k/uL (1.0-4.8); Lymphocytes % (A) 28 %; MCH 31.1 pg (25.0-35.0); MCHC 32.7 g/dL (31.0-37.0); MCV 95.1 fL (80.0-100.0); Monocytes # (A) 0.3 k/uL (0-1.0); Monocytes % (A) 5 %; Neutrophils # (A) 3.8 k/uL (1.3-7.7); Neutrophils % (A) 62 %; Platelet Count 154 k/uL (150-450); RBC 4.35 m/uL (4.30-5.90); RDW 12.9 % (11.5-15.5); WBC 6.2 k/uL (3.8-10.6)
[2021-04-03] MEDS ORDERED: METOPROLOL TARTRATE 25 MG TAB PO SCH (09:00)
[2021-04-03] MEDS ORDERED: ASPIRIN 325 MG TAB PO SCH (09:00)
[2021-04-03 09:02] LABS: INR 1.1 (<1.2); Prothrombin Time 11.3 sec (9.0-12.0)
[2021-04-03 09:10] LABS: African American GFR (CKD) >90 (>60 ml/min/1.73 sqM); Anion Gap 6 mmol/L; Blood Urea Nitrogen 14 mg/dL (9-20); Calcium 9.6 mg/dL (8.4-10.2); Carbon Dioxide 28 mmol/L (22-30); Chloride 108 mmol/L (98-107); Cholesterol 140 mg/dL (<200); Glucose 89 mg/dL (74-99); HDL Cholesterol 44 mg/dL (40-60); LDL Cholesterol,Calculated 82 mg/dL (0-99); Non-African American GFR(CKD) >90 (>60 ml/min/1.73 sqM); Potassium 4.6 mmol/L (3.5-5.1); Sodium 142 mmol/L (137-145); Triglycerides 69 mg/dL (<150)
--- NOTE | 2021-04-03 10:55 | P.PN ---
Subjective This is a pleasant 40-year-old male past medical history significant for chronic nicotine dependence. He follows with Dr. Fine. Cardiac ca theterization revealed normal coronary arteries with no wall motion abnormalities. He is seen and examined laying flat resting comfortably in bed in no acute distress. He denies any symptoms of chest pain. Breathing is stable. Telemetry tracings unremarkable. Laboratory data reviewed, CBC unremarkable, d- dimer 0.27, sodium 142, potassium 4.6, creatinine 0.91, 0.515, 1.04, 1.26, 0.806, LDL 82 and HDL 44. GENERAL: Well-appearing, well-nourished and in no acute distress. NECK: Supple without JVD or thyromegaly. LUNGS: Breath sounds clear to auscultation bilaterally. Respiration equal and unlabored. No wheezes, rales or rhonchi. HEART: Regular rate and rhythm without murmurs, rubs or gallops. S1 and S2 heard. EXTREMITIES: Normal range of motion, no edema. No clubbing or cyanosis. Peripheral pulses intact. ASSESSMENT Non-ST elevated myocardial infarction Chronic nicotine dependence PLAN Check viral titers. Initiate imdur 30 mg daily for the possibility of micro-vascular disease. Increase activity and ambulation in the halls. Ongoing telemetry monitoring. We will continues to follow and make recommendations accordingly. Nurse Practitioner note has been reviewed, I agree with a documented findings and plan of care. Patient was seen and examined. Objective - Vital Signs Vital signs: Vital Signs Temp 97.9 F 04/03/21 08:00 Pulse 82 04/03/21 08:00 Resp 16 04/03/21 08:00 BP 117/64 04/03/21 08:00 Pulse Ox 100 04/03/21 08:00 Intake & Output 04/02/21 04/03/21 04/03/21 18:59 06:59 18:59 Intake Total 200 119.699 Output Total 0 Balance 200 119.699 Weight 81.647 kg 83.2 kg Intake: IV 200 Intake, IV Titration 119.699 Amount Heparin Sod,Pork in 0.45% 119.699 NaCl 25,000 unit In 0.45 % NaCl 1 250ml.bag @ 12 UNITS/KG/HR 9.798 mls/hr IV .Q24H [facility] Rx#: [id number] Oral 0 Output: Urine 0 Other: Voiding Method Toilet Urinal # Voids 1 - Labs CBC & Chem 7: 04/03/21 06:43 04/03/21 06:43 Labs: Abnormal Lab Results - Last 24 Hours (Table) 04/02/21 04/02/21 04/02/21 Range/Units 13:00 16:10 21:07 APTT (22.0-30.0) sec Chloride (98-107) mmol/L Troponin I 0.515 H* 1.040 H* 1.260 H* (0.000-0.034) ng/mL 04/03/21 04/03/21 04/03/21 Range/Units 01:00 06:43 06:43 APTT 34.1 H (22.0-30.0) sec Chloride 108 H (98-107) mmol/L Troponin I 0.806 H* (0.000-0.034) ng/mL 04/03/21 Range/Units 08:48 APTT 42.4 H (22.0-30.0) sec Chloride (98-107) mmol/L Troponin I (0.000-0.034) ng/mL
--- NOTE | 2021-04-03 12:00 | ECHOF ---
Referral Reason:chest pain MEASUREMENTS -------- HEIGHT: 182.9 cm WEIGHT: 81.6 kg BP: RVIDd: 3.3 cm (< 3.3) IVSd: 1.1 cm (0.6 - 1.1) LVIDd: 5.5 cm (3.9 - 5.3) LVPWd: 1.2 cm (0.6 - 1.1) IVSs: 1.2 cm LVIDs: 4.4 cm LVPWs: 1.2 cm LA Diam: 3.7 cm (2.7 - 3.8) LAESV Index (A-L): 37.90 ml/m Ao Diam: 3.4 cm (2.0 - 3.7) AV Cusp: 2.1 cm (1.5 - 2.6) LA Diam: 4.2 cm (2.7 - 3.8) MV EXCURSION: 21.171 mm (> 18.000) MV EF SLOPE: 150 mm/s (70 - 150) EPSS: 1.2 cm MV E Santhosh: 0.72 m/s MV DecT: 162 ms MV A Santhosh: 0.55 m/s MV E/A Ratio: 1.31 RAP: 5.00 mmHg RVSP: 28.77 mmHg FINDINGS -------- Resting bradycardia (HR<60bpm). This was a technically good study. LV size, wall thickness and systolic function are normal, with an EF greater than 55%. The left durga tricular size is normal. There is mild global hypokinesis of LV . Overall left ventricular systol ic function is mildly impaired with, an EF between 45 - 50 %. The right ventricle is normal in size. LA is moderately dilated 34-39 ml/m2 The right atrial size is normal. The aortic valve is trileaflet, and appears structurally normal. No aortic stenosis or regurgitation. Mild mitral regurgitation is present. Mild tricuspid regurgitation present. Right ventricular systolic pressure is normal at < 35 mmHg. There is no pulmonic regurgitation present. The aortic root size is normal. There is no pericardial effusion. CONCLUSIONS -------- 1. LV size, wall thickness and systolic function are normal, with an EF greater than 55%. 2. The left ventricular size is normal. 3. Overall left ventricular systolic function is mildly impaired with, an EF between 45 - 50 %. 4. The right ventricle is normal in size. 5. LA is moderately dilated 34-39 ml/m2 6. The right atrial size is normal. 7. The aortic valve is trileaflet, and appears structurally normal. No aortic stenosis or regurgitati on. 8. Mild mitral regurgitation is present. 9. Mild tricuspid regurgitation present. 10. There is no pulmonic regurgitation present. 11. The aortic root size is normal. 12. There is no pericardial effusion. SULFUR CHLORIDE OPERATOR: Julienne Fournier RDCS
[2021-04-03] MEDS: ISOSORBIDE MONONITRATE ER 30 MG TAB.ER.24H PO SCH (12:22)
[2021-04-03 17:33] LABS: Appearance,Urine Clear (Clear); Bilirubin,Urine Negative (Negative); Blood,Urine Negative (Negative); Color,Urine Light Yellow; Glucose,Urine (UA) Negative (Negative); Ketones,Urine Negative (Negative); Leukocyte Esterase,Urine Negative (Negative); Nitrite,Urine Negative (Negative); Protein,Urine Negative (Negative); Specific Gravity,Urine 1.013 (1.001-1.035); Urobilinogen,Urine <2.0 mg/dL (<2.0)
[2021-04-03 17:45] LABS: Amphetamine Screen,Urine Not Detected (NotDetected); Barbiturate Screen,Urine Not Detected (NotDetected); Benzodiazepines Screen,Urine Not Detected (NotDetected); Cocaine Screen,Urine Not Detected (NotDetected); Methadone Screen, Urine Not Detected (NotDetected); Opiate Screen,Urine Not Detected (NotDetected); Oxycodone Screen, Urine Not Detected (NotDetected); Phencyclidine Screen,Urine Not Detected (NotDetected); Tricyclic Antidepressant,Urine Not Detected (NotDetected); Urn Cannabinoid Scrn Detected (NotDetected)
--- NOTE | 2021-04-03 18:23 | PN ---
PROGRESS NOTE DATE OF SERVICE: 04/03/2021 This 40-year-old gentleman admitted with acute qww-QI-ezdtbgh-elevation myocardial infarction had cardiac catheterization that showed normal coronary arteries. Cardiology is following the patient closely. No chest pain. No palpitations. No fever. PHYSICAL EXAMINATION: Alert and oriented x3. Pulse is 62, blood pressure 124/86, respirations 16, temperature 97.3, pulse ox 99% on room air. HEENT: Conjunctivae normal. NECK: No jugular venous distention. S CARDIOVASCULAR SYSTEM: S1, S2 muffled. K RESPIRATORY SYSTEM: Breath sounds diminished at the bases. A few scattered rhonchi. ABDOMEN: Soft, non-tender. NERVOUS SYSTEM: No focal deficit. LABS: Troponin 0.806. ASSESSMENT: 1. Chest pain, possible acute zbl-EY-kkvrkqd-elevation myocardial infarction, status post cardiac catheterization showing normal coronary arteries. 2. Troponin . 3. Sinus tachycardia. 4. History of nicotine dependence. 5. History of tetrahydrocannabinol. RECOMMENDATIONS AND DISCUSSION: I recommend to continue current medications, continue with the monitoring, symptomatic treatment. Otherwise at this time I would also recommend UA to complete the workup. Will continue to monitor. Continue with the beta blockers, antiplatelet agents. Closely follow with Cardiology. Guarded prognosis. Further recommendations to follow. MMODL / IJN: [id number] / MONTSE
[2021-04-04] MEDS: PANTOPRAZOLE 40 MG TABLET PO SCH (06:25)
[2021-04-04] MEDS: ISOSORBIDE MONONITRATE ER 30 MG TAB.ER.24H PO SCH (08:33)
[2021-04-04] MEDS: ATORVASTATIN 20 MG TAB PO SCH (08:33)
[2021-04-04] MEDS: ASPIRIN 81 MG PO SCH (08:33)
[2021-04-04] MEDS: METOPROLOL TARTRATE 12.5 MG TAB PO SCH (08:33)
[2021-04-04 12:10] VITALS: BP 122/68; PULSE 47; RESP 20; TEMP 97.9
--- NOTE | 2021-04-04 12:24 | P.PN ---
Subjective This is a pleasant 40-year-old male past medical history significant for chronic nicotine dependence. He follows with Dr. Fine. Cardiac ca theterization revealed normal coronary arteries with no wall motion abnormalities. He is seen and examined laying flat resting comfortably in bed in no acute distress. He denies any symptoms of chest pain. Breathing is stable. Telemetry tracings unremarkable. Laboratory data reviewed, CBC unremarkable, d- dimer 0.27, sodium 142, potassium 4.6, creatinine 0.91, 0.515, 1.04, 1.26, 0.806, LDL 82 and HDL 44. 04/04/2021 Patient is seen and examined up ambulating around the room in no acute distress. He denies any further symptoms of chest discomfort. Blood pressure 122/68 heart rate running 50s to 60s. Viral titers are pending. GENERAL: Well-appearing, well-nourished and in no acute distress. NECK: Supple without JVD or thyromegaly. LUNGS: Breath sounds clear to auscultation bilaterally. Respiration equal and unlabored. No wheezes, rales or rhonchi. HEART: Regular rate and rhythm without murmurs, rubs or gallops. S1 and S2 heard. EXTREMITIES: Normal range of motion, no edema. No clubbing or cyanosis. Peripheral pulses intact. ASSESSMENT Non-ST elevated myocardial infarction Chronic nicotine dependence PLAN Stable for discharge on current medical regimen. Follow-up in the office with Dr. Fine next week. Consider outpatient cardiac MRI. Follow-up from viral titers in the outpatient setting. Nurse Practitioner note has been reviewed, I agree with a documented findings and plan of care. Patient was seen and examined. Objective - Vital Signs Vital signs: Vital Signs Temp 98.0 F 04/04/21 08:28 Pulse 62 04/04/21 08:28 Resp 16 04/04/21 08:28 BP 131/75 04/04/21 08:28 Pulse Ox 99 04/04/21 08:28 Intake & Output 04/03/21 04/04/21 04/04/21 18:59 06:59 18:59 Intake Total 1130 240 Output Total 1 Balance 1130 -1 240 Weight 83.1 kg Intake: Intake, IV Titration 150 Amount Heparin Sod,Pork in 0.45% 0 NaCl 25,000 unit In 0.45 % NaCl 1 250ml.bag @ 0 mls/hr IV .[facility] Rx #:[id number] Sodium Chloride 0.9% 1, 150 000 ml @ 75 mls/hr IV . [id number] [facility] Rx#:[id number] Oral 980 240 Output: Urine 1 Other: Voiding Method Toilet Toilet Urinal Urinal # Voids 2 - Labs CBC & Chem 7: 04/03/21 06:43 04/03/21 06:43 Labs: Abnormal Lab Results - Last 24 Hours (Table) 04/03/21 Range/Units Unknown U Marijuana (THC) Screen Detected H (NotDetected)
--- NOTE | 2021-04-04 16:35 | P.DS ---
Providers Date of admission: 04/02/21 19:22 Expected date of discharge: 04/04/21 Attending physician: Michele Steel Consults: 04/02/21 10:54 Consult Physician Urgent Consulting Provider: Nir Fine Consult Reason/Comments: cp Do you want consulting provider notified?: Yes Primary care physician: Jose Tello [place] [facility] Course: Final diagnosis Chest pain, possible acute non-ST segment elevation myocardial infarction status post cardiac catheterization showing normal coronary arteries Elevated troponin Sinus tachycardia History of nicotine dependence History of THC use Discharge disposition Patient is being discharged in a stable condition with guarded prognosis to home. Patient will follow-up with Dr. Tello in the outpatient setting upon discharge. Patient also instructed to follow-up with cardiology Dr. Fine in 2 weeks. Total time taken is greater than 35 minutes. Hospital course This is a 40-year-old male who was recently admitted with non-ST segment elevation myocardial infarction and underwent cardiac catheterization showing normal coronary arteries being closely followed by cardiology. Patient will follow-up with Dr. Fine in the outpatient setting in 2 weeks as scheduled. Patient will continue on aspirin and Lipitor, Imdur, and Lopressor upon discharge. Patient also had some sent out viral studies which will be followed by cardiology in the outpatient setting. Patient is asking when he is able to go home. Currently no reports of chest pain, shortness of breath, or palpitations. Patient is afebrile. No reports of nausea or vomiting and patient is tolerating diet. Patient will be discharged home today. On exam vital signs are stable. Cardio S1, S2 are muffled. Respiratory system shows diminished breath sounds at the bases with no wheezing or rhonchi noted. Abdomen is soft and nontender. Nervous system shows no focal deficits. Please refer to medication reconciliation sheet for a list of medications. Patient Condition at Discharge: Stable Plan - Discharge Summary Discharge Rx Participant: Yes New Discharge Prescriptions: New Isosorbide Mononitrate ER [Imdur] 30 mg PO DAILY #90 tab.er.24h Nicotine 14Mg/24Hr Patch [Habitrol] 1 patch TRANSDERM DAILY #20 patch Metoprolol Tartrate [Lopressor] 12.5 mg PO QAM 30 Days #30 tab Atorvastatin [Lipitor] 20 mg PO DAILY #90 tab Continue Aspirin EC [Ecotrin Low Dose] 81 mg PO QAM Discontinued Metoprolol Tartrate [Lopressor] 25 mg PO QAM Discharge Medication List Aspirin EC [Ecotrin Low Dose] 81 mg PO QAM 04/02/21 [History] Atorvastatin [Lipitor] 20 mg PO DAILY #90 tab 04/04/21 [Rx] Isosorbide Mononitrate ER [Imdur] 30 mg PO DAILY #90 tab.er.24h 04/04/21 [Rx] Metoprolol Tartrate [Lopressor] 12.5 mg PO QAM 30 Days #30 tab 04/04/21 [Rx] Nicotine 14Mg/24Hr Patch [Habitrol] 1 patch TRANSDERM DAILY #20 patch 04/04/21 [Rx] Follow up Appointment(s)/Referral(s): Nir Fine MD [STAFF PHYSICIAN] - 04/18/21 2:30 pm Jose Tello DO [Primary Care Provider] - 04/09/21 3:00 pm Patient Instructions/Handouts: *Surgery [facility] - After Heart Catheterization - Furniture [employer]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
[2021-04-07 12:09] LABS: Parvovirus B-19 IgG Antibodies 5.49 INDEX (<=0.90); Parvovirus B-19 IgM Antibodies 0.32 INDEX (<=0.90)
== END 2021-04-04 14:22 | disposition home or self-care (01) | DRG 282 ==
LOC: EC 08:32 → 1SOBS 10:54 → 3SCARD 18:05 → OBSVTOIN 19:22
PROVIDERS: ADMIT Internal Medicine; ATTEND Internal Medicine
PROC: B2151ZZ Fluoroscopy of Left Heart using Low Osmolar Contrast (ICD-10-PCS; principal; 2021-04-02 18:17)
PROC: B2111ZZ Fluoroscopy of Multiple Coronary Arteries using Low Osmolar Contrast (ICD-10-PCS; principal; 2021-04-02 18:17)
PROC: 4A023N7 Measurement of Cardiac Sampling and Pressure, Left Heart, Percutaneous Approach (ICD-10-PCS; principal; 2021-04-02 18:17)
DX: I21.4 Non-ST elevation (NSTEMI) myocardial infarction (principal); Z20.822 Contact with and (suspected) exposure to COVID-19; F17.210 Nicotine dependence, cigarettes, uncomplicated; R00.0 Tachycardia, unspecified; Z79.82 Long term (current) use of aspirin; Z79.899 Other long term (current) drug therapy
CPT/HCPCS: 36415; 71046; 80048; 80053; 80061; 80306; 81003; 83735; 83880; 84484; 85025; 85379; 85610; 85730; 86658; 86747; 87635; 93005; 93306; 93458; 99285

== ENCOUNTER 2021-04-11 07:29 | Observation (INO) | payer OTHER ==
--- NOTE | 2021-04-11 07:40 | ED ---
General Adult HPI - General Stated complaint: Chest Pain Time Seen by Provider: 04/11/21 07:30 Source: EMS Mode of arrival: EMS Limitations: no limitations - History of Present Illness Initial comments: Dictation was produced using [employer] dictation software. please excuse any grammatical, word or spelling errors. This patient was cared for during a federal and state declared state of emergency secondary to Covid 19 Chief Complaint: 40-year-old male presents to the emergency department for chest pain. History of Present Illness: A 40-year-old male presents to the emergency department for chest pain. Patient states his symptoms lasted several minutes. His pain began at 645. He called EMS. Upon EMS evaluation patient's symptoms abated. He was given aspirin and nitroglycerin. Since that his pain improved with the nitroglycerin. Patient states that pain was substernal and pressure- like sensation. Did report associated nausea. Patient reports that he had a heart attack last week and he had a cardiac catheterization. No coronary artery stents replaced. Currently he is pain-free. Denies any numbness and paresthesias to the arms or legs. He does not have any shortness of breath. No external symptoms. The ROS documented in this emergency department record has been reviewed and confirmed by me. Those systems with pertinent positive or negative responses have been documented in the HPI. All other systems are other negative and/or n oncontributory. PHYSICAL EXAM: General Impression: Alert and oriented x3, not in acute distress HEENT: Normocephalic atraumatic, extra-ocular movements intact, pupils equal and reactive to light bilaterally, mucous membranes moist. Cardiovascular: Heart regular rate and rhythm Chest: Able to complete full sentences, no retractions, no tachypnea Abdomen: abdomen soft, non-tender, non-distended, no organomegaly Musculoskeletal: Pulses present and equal in all extremities, no peripheral edema Motor: no focal deficits noted Neurological: CN II-XII grossly intact, no focal motor or sensory deficits noted Skin: Intact with no visualized rashes Psych: Normal affect and mood ED course: 40-year-old male presents to the emergency department for chest pain. Signs upon arrival are within acceptable limits. Patient had a cath performed last week. He was told by cardiology team that his cath was normal. Cath report was reviewed. There was no significant disease in the right coronary artery, left main coronary artery. No significant disease of the left anterior descending coronary artery. Of note on his LAD there are minor irregularities with no significant disease. There are also minor irregularities of the left posterior circumflex coronary artery. He was admitted last week and did have elevated troponins. Patient was observed in the emergency department. He is reevaluated a 30 2 AM with no recurrence of symptoms. Laboratory evaluation obtained. CBC, coag panel, metabolic panel is unremarkable. Troponin is negative. Patient's clinical presentation consistent with atypical chest pain typical features. Patient be admitted observation for serial troponins and cardiac monitoring.cardiology to be consulted. EKG interpretation: Ventricular rate one, sinus bradycardia, WY interval 190, QRS 124, QTC 405. No WY prolongation, no QTC prolongation, no ST or T-wave changes noted. EKG compared to 04/02/2021 showing no changes. Overall, this EKG is unremarkable - Related Data Home Medications Medication Instructions Recorded Confirmed Aspirin EC [Ecotrin Low Dose] 81 mg PO QAM 04/02/21 04/11/21 Previous Rx's Medication Instructions Recorded Atorvastatin [Lipitor] 20 mg PO DAILY #90 tab 04/04/21 Isosorbide Mononitrate ER [Imdur] 30 mg PO DAILY #90 tab.er.24h 04/04/21 Metoprolol Tartrate [Lopressor] 12.5 mg PO QAM 30 Days #30 tab 04/04/21 Nicotine 14Mg/24Hr Patch [Habitrol] 1 patch TRANSDERM DAILY #20 patch 04/04/21 Allergies Allergy/AdvReac Type Severity Reaction Status Date / Time No Known Allergies Allergy Verified 04/11/21 08:04 Review of Systems ROS Statement: Those systems with pertinent positive or pertinent negative responses have been documented in the HPI. ROS Other: All systems not noted in ROS Statement are negative. Past Medical History Past Medical History: Chest Pain / Angina Additional Past Medical History / Comment(s): Kidney stones History of Any Multi-Drug Resistant Organisms: None Reported Past Surgical History: No Surgical Hx Reported, Heart Catheterization Additional Past Surgical History / Comment(s): heart cath 04/02/21 Past Anesthesia/Blood Transfusion Reactions: No Reported Reaction Past Psychological History: No Psychological Hx Reported Smoking Status: Current every day smoker Past Alcohol Use History: Rare Past Drug Use History: Marijuana - Past Family History Mother History Unknown: Yes Additional Family Medical History / Comment(s): Back problems Father History Unknown: Yes Additional Family Medical History / Comment(s): Dads mother had heart problems General Exam Limitations: no limitations Course Vital Signs 04/11/21 04/11/21 07:31 08:16 Temperature 97.7 F Pulse Rate 50 L 49 L Respiratory 16 16 Rate Blood Pressure 122/71 113/69 O2 Sat by Pulse 96 99 Oximetry Medical Decision Making - Lab Data Result diagrams: 04/11/21 07:39 04/11/21 07:39 Lab Results 04/11/21 04/11/21 04/11/21 Range/Units 07:39 07:39 07:39 WBC 6.7 (3.8-10.6) k/uL RBC 4.38 (4.30-5.90) m/uL Hgb 13.7 (13.0-17.5) gm/dL Hct 40.5 (39.0-53.0) % MCV 92.4 (80.0-100.0) fL MCH 31.3 (25.0-35.0) pg MCHC 33.9 (31.0-37.0) g/dL RDW 12.7 (11.5-15.5) % Plt Count 171 (150-450) k/uL MPV 8.9 Neutrophils % 53 % Lymphocytes % 31 % Monocytes % 6 % Eosinophils % 8 % Basophils % 1 % Neutrophils # 3.6 (1.3-7.7) k/uL Lymphocytes # 2.1 (1.0-4.8) k/uL Monocytes # 0.4 (0-1.0) k/uL Eosinophils # 0.5 (0-0.7) k/uL Basophils # 0.1 (0-0.2) k/uL PT 10.1 (9.0-12.0) sec INR 0.9 (<1.2) APTT 23.7 (22.0-30.0) sec Sodium 141 (137-145) mmol/L Potassium 4.1 (3.5-5.1) mmol/L Chloride 109 H (98-107) mmol/L Carbon Dioxide 25 (22-30) mmol/L Anion Gap 7 mmol/L BUN 17 (9-20) mg/dL Creatinine 0.84 (0.66-1.25) mg/dL Est GFR (CKD-EPI)AfAm >90 (>60 ml/min/1.73 sqM) Est GFR (CKD-EPI)NonAf >90 (>60 ml/min/1.73 sqM) Glucose 100 H (74-99) mg/dL Calcium 9.4 (8.4-10.2) mg/dL Magnesium 1.9 (1.6-2.3) mg/dL Total Bilirubin 0.2 (0.2-1.3) mg/dL AST 22 (17-59) U/L ALT 19 (4-49) U/L Alkaline Phosphatase 97 (38-126) U/L Creatine Kinase (55-170) U/L Troponin I (0.000-0.034) ng/mL Total Protein 6.8 (6.3-8.2) g/dL Albumin 4.3 (3.5-5.0) g/dL 04/11/21 04/11/21 Range/Units 07:39 07:39 WBC (3.8-10.6) k/uL RBC (4.30-5.90) m/uL Hgb (13.0-17.5) gm/dL Hct (39.0-53.0) % MCV (80.0-100.0) fL MCH (25.0-35.0) pg MCHC (31.0-37.0) g/dL RDW (11.5-15.5) % Plt Count (150-450) k/uL MPV Neutrophils % % Lymphocytes % % Monocytes % % Eosinophils % % Basophils % % Neutrophils # (1.3-7.7) k/uL Lymphocytes # (1.0-4.8) k/uL Monocytes # (0-1.0) k/uL Eosinophils # (0-0.7) k/uL Basophils # (0-0.2) k/uL PT (9.0-12.0) sec INR (<1.2) APTT (22.0-30.0) sec Sodium (137-145) mmol/L Potassium (3.5-5.1) mmol/L Chloride (98-107) mmol/L Carbon Dioxide (22-30) mmol/L Anion Gap mmol/L BUN (9-20) mg/dL Creatinine (0.66-1.25) mg/dL Est GFR (CKD-EPI)AfAm (>60 ml/min/1.73 sqM) Est GFR (CKD-EPI)NonAf (>60 ml/min/1.73 sqM) Glucose (74-99) mg/dL Calcium (8.4-10.2) mg/dL Magnesium (1.6-2.3) mg/dL Total Bilirubin (0.2-1.3) mg/dL AST (17-59) U/L ALT (4-49) U/L Alkaline Phosphatase (38-126) U/L Creatine Kinase 72 (55-170) U/L Troponin I <0.012 (0.000-0.034) ng/mL Total Protein (6.3-8.2) g/dL Albumin (3.5-5.0) g/dL Disposition Clinical Impression: Chest pain Disposition: ADMITTED IP TO THIS [facility] Condition: Fair Referrals: Jose Tello DO [Primary Care Provider] - 1-2 days
[2021-04-11 07:52] LABS: Basophils # (A) 0.1 k/uL (0-0.2); Basophils % (A) 1 %; Eosinophils # (A) 0.5 k/uL (0-0.7); Eosinophils % (A) 8 %; HCT 40.5 % (39.0-53.0); HGB 13.7 gm/dL (13.0-17.5); Lymphocytes # (A) 2.1 k/uL (1.0-4.8); Lymphocytes % (A) 31 %; MCH 31.3 pg (25.0-35.0); MCHC 33.9 g/dL (31.0-37.0); MCV 92.4 fL (80.0-100.0); Mean Platelet Volume 8.9; Monocytes # (A) 0.4 k/uL (0-1.0); Monocytes % (A) 6 %; Neutrophils # (A) 3.6 k/uL (1.3-7.7); Neutrophils % (A) 53 %; Platelet Count 171 k/uL (150-450); RBC 4.38 m/uL (4.30-5.90); RDW 12.7 % (11.5-15.5); WBC 6.7 k/uL (3.8-10.6)
--- NOTE | 2021-04-11 07:57 | XR ---
EXAMINATION TYPE: XR chest 2V DATE OF EXAM: 04/11/2021 COMPARISON: Chest x-ray April 02, 2021 HISTORY: Chest pain today. TECHNIQUE: Frontal and lateral views of the chest are obtained. FINDINGS: There is mild chronic parenchymal changes without suspicious focal air space opacity, pleu ral effusion, or pneumothorax seen. The cardiac silhouette size remains within normal limits. Overl veronica EKG leads. The osseous structures are intact. IMPRESSION: Chronic changes without acute pulmonary process.
[2021-04-11 07:58] LABS: ALT 19 U/L (4-49); AST 22 U/L (17-59); African American GFR (CKD) >90 (>60 ml/min/1.73 sqM); Albumin 4.3 g/dL (3.5-5.0); Alkaline Phosphatase 97 U/L (38-126); Anion Gap 7 mmol/L; Blood Urea Nitrogen 17 mg/dL (9-20); Calcium 9.4 mg/dL (8.4-10.2); Carbon Dioxide 25 mmol/L (22-30); Chloride 109 mmol/L (98-107); Glucose 100 mg/dL (74-99); Magnesium 1.9 mg/dL (1.6-2.3); Non-African American GFR(CKD) >90 (>60 ml/min/1.73 sqM); Potassium 4.1 mmol/L (3.5-5.1); Sodium 141 mmol/L (137-145); Total Bilirubin 0.2 mg/dL (0.2-1.3); Total Protein 6.8 g/dL (6.3-8.2)
[2021-04-11 08:02] LABS: INR 0.9 (<1.2); Partial Thromboplastin Time 23.7 sec (22.0-30.0); Prothrombin Time 10.1 sec (9.0-12.0)
[2021-04-11] MEDS ORDERED: NITROGLYCERIN SL TABS 0.4 MG TAB SUBLINGUAL PRN (08:30)
--- NOTE | 2021-04-11 10:20 | P.HPIM ---
History of Present Illness This is a pleasant 40 years old male with past medical history of kidney stones, cigarette smoker. He follows up with Dr. Fine. He is a patient of Dr. Tello. 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 This morning he developed the same kind of chest pain he had last week, is in the middle, nonradiating, but if/10, felt like squeezing associated with little dyspnea both at rest and with exertion. Little. And little lightheadedness. He used to smoke and quit last week, no alcohol. He uses marijuana at home. D-dimer at that time was negative at 0.27, he has another negative d-dimer on 01/11/21 with 0.21 Chest x-ray showing chronic changes without acute pulmonary process Vitals are stable except for mild bradycardia at 50 BPM. Labs show an unremarkable CBC, INR, basic metabolic panel and liver enzymes. Troponin is negative less than 0.01. In the emergency room patient was started on aspirin 325 mg compared to him dose of 81 Review of Systems CONSTITUTIONAL: No fever, no malaise, no fatigue. HEENT: No recent visual problems or hearing problems. Denied any sore throat. CARDIOVASCULAR: No orthopnea, PND, no palpitations, no syncope. PULMONARY: No shortness of breath, no cough, no hemoptysis. GASTROINTESTINAL: No diarrhea, no nausea, no vomiting, no abdominal pain. Normoactive bowel sounds. NEUROLOGICAL: No headaches, no weakness, no numbness. HEMATOLOGICAL: Denies any bleeding or petechiae. GENITOURINARY: Denies any burning micturition, frequency, or urgency. MUSCULOSKELETAL/RHEUMATOLOGICAL: Denies any joint pain, swelling, or any muscle pain. ENDOCRINE: Denies any polyuria or polydipsia. Past Medical History Past Medical History: Chest Pain / Angina Additional Past Medical History / Comment(s): Kidney stones History of Any Multi-Drug Resistant Organisms: None Reported Past Surgical History: No Surgical Hx Reported, Heart Catheterization Additional Past Surgical History / Comment(s): heart cath 04/02/21 Past Anesthesia/Blood Transfusion Reactions: No Reported Reaction Past Psychological History: No Psychological Hx Reported Smoking Status: Current every day smoker Past Alcohol Use History: Rare Past Drug Use History: Marijuana - Past Family History Mother History Unknown: Yes Additional Family Medical History / Comment(s): Back problems Father History Unknown: Yes Additional Family Medical History / Comment(s): Dads mother had heart problems Medications and Allergies Home Medications Medication Instructions Recorded Confirmed Type Aspirin EC [Ecotrin Low Dose] 81 mg PO QAM 04/02/21 04/11/21 History Atorvastatin [Lipitor] 20 mg PO DAILY #90 tab 04/04/21 04/11/21 Rx Isosorbide Mononitrate ER [Imdur] 30 mg PO DAILY #90 tab.er.24h 04/04/21 04/11/21 Rx Metoprolol Tartrate [Lopressor] 12.5 mg PO QAM 30 Days #30 tab 04/04/21 04/11/21 Rx Nicotine 14Mg/24Hr Patch [Habitrol] 1 patch TRANSDERM DAILY #20 patch 04/04/21 04/11/21 Rx Allergies Allergy/AdvReac Type Severity Reaction Status Date / Time No Known Allergies Allergy Verified 04/11/21 08:04 Physical Exam Vitals: Vital Signs Temp Pulse Resp BP Pulse Ox 04/11/21 08:16 49 L 16 113/69 99 04/11/21 07:31 97.7 F 50 L 16 122/71 96 Intake and Output 04/10/21 04/11/21 04/11/21 22:59 06:59 14:59 Other: Weight 75.206 kg GENERAL: The patient is alert and oriented x3, not in any acute distress. Well developed, well nourished. HEENT: Pupils are round and equally reacting to light. EOMI. No scleral icterus. No conjunctival pallor. Normocephalic, atraumatic. No pharyngeal erythema. No thyromegaly. CARDIOVASCULAR: S1 and S2 present. No murmurs, rubs, or gallops. PULMONARY: Chest is clear to auscultation, no wheezing or crackles. ABDOMEN: Soft, nontender, nondistended, normoactive bowel sounds. No palpable organomegaly. MUSCULOSKELETAL: No joint swelling or deformity. EXTREMITIES: No cyanosis, clubbing, or pedal edema. NEUROLOGICAL: Gross neurological examination did not reveal any focal deficits. SKIN: No rashes. No petechiae Results CBC & Chem 7: 04/11/21 07:39 04/11/21 07:39 Labs: Abnormal Lab Results - Last 24 Hours (Table) 04/11/21 Range/Units 07:39 Chloride 109 H (98-107) mmol/L Glucose 100 H (74-99) mg/dL Assessment and Plan Assessment: chest pain , rule out cardiac causes. Rule out PE Recent history Suspicious for None ST elevation myocardial infarction versus MINOCA Nicotine dependence, quit last week. Declined nicotine patch History of kidney stones Plan: This is a pleasant 40 years old male who presents with chest pain and elevated troponin. Cardiology will be consulted for further evaluation. Continue with aspirin. Check d-dimer, and if it is positive for what order CTA of the chest, I explained for the patient risks with IV contrast including ALLERGIC reaction but he had it before and nephrotoxicity and he verbalized understanding and acceptance Labs and medication were reviewed.. Continue same treatment. Continue with symptomatic treatment. Resume home medication. Monitor lytes and vitals. DVT and GI prophylaxis. Further recommendations depends on the clinical course of the patient DVT prophylaxis: Subcutaneous heparin GI Prophylaxis: Pepcid PT/OT: Pending Prognosis is guarded
[2021-04-11 11:25] VITALS: BP 121/71; PULSE 47; RESP 17; TEMP 97.3
--- NOTE | 2021-04-11 11:57 | P.CRDCN ---
History of Present Illness History of present illness: HISTORY OF PRESENTING ILLNESS This is a pleasant 40-year-old male past medical history significant for prior methamphetamine use (for 17 years, quit a few years ago), nicotine dependence (quit smoking a week ago), kidney stones. He follows in the office with Dr. Fine. Patient presents to the emergency department with complaints of left sided 10/10 chest pain. Chest pain is nonexertional, nonradiating. Associated symptoms include mild dyspnea. He denies palpitations, lower extremity edema, fatigue, weakness, lightheadedness, syncope. Nitroglycerin makes the pain better. He denies symptoms of orthopnea or PND. Patient was seen by Dr. Fine in November 2020 at [facility] with chest pain, he performed a stress echo which was normal. However the patient continued to have recurrent episodes of chest pain responsive to sublingual nitroglycerin and another repeat admission was in February at that time in spite of negative stress test because of recurrent chest pain Dr. Fine advised a coronary angiography. However the patient left AGAINST MEDICAL ADVICE. Patient presented back to the office with Dr. Fine with recurrent chest pain on 03/31/2021. Patient said it that he wished to proceed with the coronary angiography. On 04/02/20 x 1 patient underwent cardiac cath with Dr. Fine which revealed no significant obstructive coronary artery disease. Ejection fraction is about 55%. This may be a [place]A. This was discussed with the patient and his . Patient was started on aspirin, metoprolol tartrate 12.5 mg daily, Imdur 30 mg daily, atorvastatin 20 mg daily. Patient was discharged/. Most recent echocardiogram 04/02/2021 EF 55%, LA is moderately dilated, mild mitral regurgitation, mild tricuspid regurgitation. EKG sinus bradycardia, HR 51, no ST-T wave changes from prior EKG. Troponin negative x 2. D-dimer negative. Chest x-rayno acute cardiopulmonary process. CBC unremarkable, sodium 141, potassium 4.1, serum creatinine 0.84, magnesium 1.9, COVID-19 negative REVIEW OF SYSTEMS At the time of my exam: CONSTITUTIONAL: Denies fever or chills. CARDIOVASCULAR: +chest pain, +shortness of breath, Denies orthopnea, PND or palpitations. RESPIRATORY: Denies cough. GASTROINTESTINAL: Denies abdominal pain, diarrhea, constipation, nausea or vomiting. MUSCULOSKELETAL: Denies myalgias. NEUROLOGIC: Denies numbness, tingling, headacbe or weakness. ENDOCRINE: Denies fatigue, weight change, polydipsia or polyurina. GENITOURINARY: Denies burning, hematuria or urgency with micturation. HEMATOLOGIC: Denies history of anemia or bleeding. PHYSICAL EXAMINATION Blood pressure 121/71 heart rate 47 afebrile and maintaining oxygen saturation 9 8% room air CONSTITUTIONAL: No apparent distress. HEENT: Head is normocephalic. Pupils are equal, round. Sclerae anicteric. Mucous membranes of the mouth are moist. No JVD. No carotid bruit. CHEST EXAMINATION: Lungs are clear to auscultation. No chest wall tenderness is noted on palpation or with deep breathing. HEART EXAMINATION: Regular rate and rhythm. S1, S2 heard. No murmurs, gallops or rub. ABDOMEN: Soft, nontender. Positive bowel sounds. EXTREMITIES: 2+ peripheral pulses, no lower extremity edema and no calf tenderness. SKIN: intact NEUROLOGIC EXAMINATION: Patient is awake, alert and oriented x3. ASSESSMENT Chest pain, atypical, EKG with no changes, troponin negative x 1 with recent cardiac catheterization on 04/02/2021 with non-obstructive coronary artery disease. May be myocardial infarction with nonobstructive coronary artery disease. Polysubstance abuse- use of marijuana and former methamphetamine use for 17 years Nicotine Dependence PLAN From cardiology perspective, continue ACS r/o with 3 troponin. D-dimer is negative. EKG with no acute ischemia changes. With recent cardiac catheterization on 04/11/2021, no further testing from cardiology perspective Continue home cardiac medications Follow up with Dr. Fine Thank you kindly for this consultation. Nurse Practitioner note has been reviewed, I agree with a documented findings and plan of care. Patient was seen and examined. Past Medical History Past Medical History: Chest Pain / Angina Additional Past Medical History / Comment(s): Kidney stones History of Any Multi-Drug Resistant Organisms: None Reported Past Surgical History: No Surgical Hx Reported, Heart Catheterization Additional Past Surgical History / Comment(s): heart cath 04/02/21 Past Anesthesia/Blood Transfusion Reactions: No Reported Reaction Past Psychological History: No Psychological Hx Reported Smoking Status: Current every day smoker Past Alcohol Use History: Rare Past Drug Use History: Marijuana - Past Family History Mother History Unknown: Yes Additional Family Medical History / Comment(s): Back problems Father History Unknown: Yes Additional Family Medical History / Comment(s): Dads mother had heart problems Medications and Allergies Home Medications Medication Instructions Recorded Confirmed Type Aspirin EC [Ecotrin Low Dose] 81 mg PO QAM 04/02/21 04/11/21 History Atorvastatin [Lipitor] 20 mg PO DAILY #90 tab 04/04/21 04/11/21 Rx Isosorbide Mononitrate ER [Imdur] 30 mg PO DAILY #90 tab.er.24h 04/04/21 04/11/21 Rx Metoprolol Tartrate [Lopressor] 12.5 mg PO QAM 30 Days #30 tab 04/04/21 04/11/21 Rx Nicotine 14Mg/24Hr Patch [Habitrol] 1 patch TRANSDERM DAILY #20 patch 04/04/21 04/11/21 Rx Allergies Allergy/AdvReac Type Severity Reaction Status Date / Time No Known Allergies Allergy Verified 04/11/21 08:04 Physical Exam Vitals: Vital Signs Temp Pulse Resp BP Pulse Ox 04/11/21 10:02 46 L 16 109/67 99 04/11/21 08:16 49 L 16 113/69 99 04/11/21 07:31 97.7 F 50 L 16 122/71 96 Intake and Output 04/10/21 04/11/21 04/11/21 22:59 06:59 14:59 Other: Weight 75.206 kg Results 04/11/21 07:39 04/11/21 07:39 Cardiac Enzymes 04/11/21 04/11/21 04/11/21 Range/Units 07:39 07:39 07:39 AST 22 (17-59) U/L CK-MB (CK-2) 0.3 (0.0-2.4) ng/mL Troponin I <0.012 (0.000-0.034) ng/mL Coagulation 04/11/21 Range/Units 07:39 PT 10.1 (9.0-12.0) sec APTT 23.7 (22.0-30.0) sec CBC 04/11/21 Range/Units 07:39 WBC 6.7 (3.8-10.6) k/uL RBC 4.38 (4.30-5.90) m/uL Hgb 13.7 (13.0-17.5) gm/dL Hct 40.5 (39.0-53.0) % Plt Count 171 (150-450) k/uL Comprehensive Metabolic Panel 04/11/21 Range/Units 07:39 Sodium 141 (137-145) mmol/L Potassium 4.1 (3.5-5.1) mmol/L Chloride 109 H (98-107) mmol/L Carbon Dioxide 25 (22-30) mmol/L BUN 17 (9-20) mg/dL Creatinine 0.84 (0.66-1.25) mg/dL Glucose 100 H (74-99) mg/dL Calcium 9.4 (8.4-10.2) mg/dL AST 22 (17-59) U/L ALT 19 (4-49) U/L Alkaline Phosphatase 97 (38-126) U/L Total Protein 6.8 (6.3-8.2) g/dL Albumin 4.3 (3.5-5.0) g/dL Current Medications Generic Name Dose Route Start Last Admin Trade Name Freq PRN Reason Stop Dose Admin Aspirin 325 mg 04/12/21 09:00 Aspirin 325 Mg Tab PO DAILY [facility] Atorvastatin Calcium 20 mg 04/12/21 09:00 Atorvastatin 20 Mg Tab PO DAILY [facility] Isosorbide Mononitrate 30 mg 04/12/21 09:00 Isosorbide Mononitrate Er 30 Mg Tab.Er.24h PO DAILY [facility] Metoprolol Tartrate 12.5 mg 04/12/21 09:00 Metoprolol Tartrate 12.5 Mg Tab PO QAM [facility] Nicotine 1 patch 04/12/21 09:00 Nicotine 14mg/24hr Patch TRANSDERM DAILY [facility] Nitroglycerin 0.4 mg 04/11/21 08:30 Nitroglycerin Sl Tabs 0.4 Mg Tab SUBLINGUAL Q5M PRN Chest Pain Intake and Output 04/10/21 04/11/21 04/11/21 22:59 06:59 14:59 Other: Weight 75.206 kg Patient Weight 04/12/21 06:59 Weight 75.206 kg 04/11/21 07:39 04/11/21 07:39
[2021-04-12] MEDS ORDERED: NICOTINE 14MG/24HR PATCH TRANSDERM SCH (09:00)
[2021-04-12] MEDS ORDERED: ISOSORBIDE MONONITRATE ER 30 MG TAB.ER.24H PO SCH (09:00)
[2021-04-12] MEDS ORDERED: ASPIRIN 325 MG TAB PO SCH (09:00)
[2021-04-12] MEDS ORDERED: ATORVASTATIN 20 MG TAB PO SCH (09:00)
[2021-04-12] MEDS ORDERED: METOPROLOL TARTRATE 12.5 MG TAB PO SCH (09:00)
== END 2021-04-11 14:47 | disposition home or self-care (01) ==
LOC: EC 07:29 → 6NMEDSUR 08:30
PROVIDERS: ADMIT Internal Medicine; ATTEND Internal Medicine
DX: R07.89 Other chest pain (principal); R11.0 Nausea; R06.02 Shortness of breath; R06.00 Dyspnea, unspecified; R42 Dizziness and giddiness; R00.1 Bradycardia, unspecified; R79.89 Other specified abnormal findings of blood chemistry; F19.10 Other psychoactive substance abuse, uncomplicated; I25.2 Old myocardial infarction; F12.90 Cannabis use, unspecified, uncomplicated; Z79.82 Long term (current) use of aspirin; Z87.442 Personal history of urinary calculi; Z87.891 Personal history of nicotine dependence; Z20.822 Contact with and (suspected) exposure to COVID-19; Z79.899 Other long term (current) drug therapy
CPT/HCPCS: 99285; 36415; 93005; 85379; 80053; 82550; 82553; 83735; 84484; 85025; 85610; 85730; 87635; 71046; G0378

== ENCOUNTER → 2021-08-20 | Outpatient (CLI) | payer OTHER | END | disposition home or self-care (01) | LOC: LABWHC1 14:00 | PROVIDERS: ATTEND Family Medicine | DX: Z20.822 Contact with and (suspected) exposure to COVID-19 (principal); J06.9 Acute upper respiratory infection, unspecified ==

== ENCOUNTER → 2023-04-08 | Outpatient (CLI) | payer OTHER ==
--- NOTE | 2023-04-08 17:44 | US ---
EXAMINATION TYPE: US scrotum with doppler. TECHNIQUE: Grayscale and color Doppler Duplex imaging performed of the scrotum. 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 Area of palpable lump corresponds to 1.5x0.9x1.3cm anechoic area in epidid ymal head Left Epididymis: 0.8 cm Doppler performed to assess for testicular vascularity; good bilateral color flow and waveforms are s een. There is no evidence of testicular torsion. Presence of hydroceles: no Presence of varicoceles: no IMPRESSION: 1. No sonographic evidence for testicular torsion or testicular mass. 2. A 1.5 cm cyst or spermatocele of the right epididymal head appears to correspond to the patient's palpable site.
== END | disposition home or self-care (01) ==
LOC: RADUSWWP 14:32
PROVIDERS: ATTEND Family Medicine
DX: N50.89 Other specified disorders of the male genital organs (principal)
CPT/HCPCS: 76870; 93975

== ENCOUNTER → 2023-09-13 | Outpatient (CLI) | payer OTHER ==
[2023-09-14 02:40] LABS: Basophils # (A) 0.04 X 10*3/uL (0.00-0.10); Basophils % (A) 0.6 %; Eosinophils # (A) 0.59 X 10*3/uL (0.04-0.35); Eosinophils % (A) 8.8 %; HCT 42.2 % (39.6-50.0); HGB 13.4 d/dL (13.0-17.0); Lymphocytes # (A) 2.27 X 10*3/uL (0.90-5.00); Lymphocytes % (A) 33.7 %; MCH 30.2 pg (27.0-32.0); MCHC 31.8 d/dL (32.0-37.0); MCV 95.3 FL (80.0-97.0); Mean Platelet Volume 11.4 FL (9.5-12.2); Monocytes # (A) 0.48 X 10*3/uL (0.20-1.00); Monocytes % (A) 7.1 %; NRBC Per 100 WBC 0 X 10*3/uL (0.00-0.01); Neutrophils # (A) 3.35 X 10*3/uL (1.80-7.70); Neutrophils % (A) 49.7 %; Platelet Count 217 X 10*3/uL (140-440); RBC 4.43 X 10*6/uL (4.40-5.60); RDW 13.6 % (11.5-14.5); WBC 6.74 X 10*3/uL (4.50-10.00)
[2023-09-14 04:04] LABS: Anion Gap 10.5 mmol/L (4.00-12.00); Carbon Dioxide 27.5 mmol/L (21.6-31.8); Potassium 4.8 mmol/L (3.5-5.5)
== END | disposition home or self-care (01) ==
LOC: LABWHC1 14:55
PROVIDERS: ATTEND Orthopaedic Surgery Hand Surgery
DX: Z01.812 Encounter for preprocedural laboratory examination (principal); G56.01 Carpal tunnel syndrome, right upper limb; G56.21 Lesion of ulnar nerve, right upper limb
CPT/HCPCS: 36415; 80051; 85025

== ENCOUNTER 2023-09-15 14:09 | Day surgery (SDC) | payer OTHER ==
--- NOTE | 2023-09-13 09:46 | P.HPOR ---
History of Present Illness H&P Date: 09/13/23 Subjective: This is a 42 year old male that presents today for follow up evaluation regarding a several year long history of progressively worsening bilateral hand numbness and tingling with the left being worse than the right. He states his numbness and tingling is mainly in the thumb, index, middle and ring finger and often times the small fingers with radiation up to the elbows. He states he now has numbness that is constant in the left hand and occasionally in the right hand. His symptoms are worse when he sleeps and often wake him up at night and are worse when driving. He has tried PT and bracing with no relief. Physical Examination: LUE: AIN/PIN/Radial/Ulnar/Median motor intact. Radial/Ulnar/Median SILT. 2+/4 Radial/Ulnar pulses palpated. 5/5 APB, 5/5 FDI. Negative Finkelsteins, negative CMC grind, positive Durkan's compression. RUE: AIN/PIN/Radial/Ulnar/Median motor intact. Radial/Ulnar/Median SILT. 2+/4 Radial/Ulnar pulses palpated. 5/5 APB, 5/5 FDI. Negative Finkelsteins, negative CMC grind, positive Durkan's compression. Positive Tinels at cubital tunnel. EMG/NCV Testing (08/03/23): B/L mild carpal tunnel syndrome, right cubital tunnel syndrome. Impression: 1.) B/L carpal tunnel syndrome 2.) Right cubital tunnel syndrome Plan: Diagnosis and treatment options were discussed with the patient. He has failed conservative treatment and would like to proceed with a right endoscopic vs open carpal tunnel release and right open cubital tunnel release. Risks and benefits of surgery including bleeding, infection, damage to surrounding tissue, need for further surgery, possible need to convert to open procedure, residual numbness were discussed and the patient wished to go forward with surgery. The patient was agreeable with this plan. CC: Savana RALPH -Guido Maynard DO Orthopedic Hand/Upper Extremity Surgeon Past Medical History Past Medical History: GERD/Reflux, Renal Disease Additional Past Medical History / Comment(s): Kidney stones History of Any Multi-Drug Resistant Organisms: None Reported Past Surgical History: Heart Catheterization Additional Past Surgical History / Comment(s): heart cath 04/02/21 Past Anesthesia/Blood Transfusion Reactions: No Reported Reaction Smoking Status: Current every day smoker - Past Family History Mother History Unknown: Yes Additional Family Medical History / Comment(s): Back problems Father History Unknown: Yes Additional Family Medical History / Comment(s): Dads mother had heart problems Medications and Allergies Home Medications Medication Instructions Recorded Confirmed Type ARIPiprazole [Abilify] 5 mg PO HS 09/10/23 09/10/23 History Omeprazole 20 mg PO DAILY PRN 09/10/23 09/10/23 History Sertraline [Zoloft] 100 mg PO QAM 09/10/23 09/10/23 History Allergies Allergy/AdvReac Type Severity Reaction Status Date / Time No Known Allergies Allergy Verified 09/10/23 10:27 Physical Examination Osteopathic Statement: *. No significant issues noted on an osteopathic structural exam other than those noted in the History and Physical/Consult.
[~2023-09-15 14:09] MED LIST: DEXAMETHASONE SOD PHOSPHATE 4 MG/ML 1 ML VIAL IV ONE; HYDROmorphone 0.5 MG/0.5 ML SYRINGE IVP PRN; LACTATED RINGERS 1,000 ML IV SCH; LIDOCAINE 1% (10MG/ML) FOR IV START INTRADERMA PRN; MIDAZOLAM 2 MG/2 ML VIAL IV PRN; ONDANSETRON 4 MG/2 ML VIAL IVP ONE
[2023-09-15] MEDS ORDERED: ONDANSETRON 4 MG/2 ML VIAL ONE (14:25)
[2023-09-15] MEDS ORDERED: MIDAZOLAM 2 MG/2 ML VIAL ONE (15:34)
[2023-09-15] MEDS ORDERED: fentaNYL (PF) 50 MCG/ML 2 ML AMP ONE (15:34)
[2023-09-15] MEDS ORDERED: HYDROmorphone (PF) 1 MG/ML ONE (15:34)
[2023-09-15] MEDS ORDERED: PROPOFOL 10 MG/ML 20 ML VIAL IV ONE (15:34)
[2023-09-15] MEDS ORDERED: LIDOCAINE 1% INJ 10MG/ML (20 ML MDV) ONE (15:34)
[2023-09-15] MEDS ORDERED: KETOROLAC 15 MG/ML 1 ML VIAL ONE (15:34)
[2023-09-15] MEDS ORDERED: BUPIVACAINE (PF) 0.5% 30 ML VIAL SQ ONE ×2 (15:55)
[2023-09-15] MEDS ORDERED: LIDOCAINE 1% INJ 10MG/ML (20 ML MDV) SQ ONE ×2 (15:55)
--- NOTE | 2023-09-15 16:45 | P.OP ---
Date of Procedure: 09/15/23 Preoperative Diagnosis: 1.) Right cubital tunnel syndrome 2.) Right carpal tunnel syndrome Postoperative Diagnosis: 1.) Right cubital tunnel syndrome 2.) Right carpal tunnel syndrome Procedure(s) Performed: 1.) Right open cubital tunnel release, in situ. 2.) Right endoscopic carpal tunnel release Anesthesia: ROBBY Surgeon: Guido Maynard Outdoor Adventure Leader #1: Sekou Alexander Estimated Blood Loss (ml): 0 Pathology: none sent Condition: stable Disposition: PACU Description of Procedure: This is a 42 year old male who presented today for a right endoscopic carpal tunnel release and open cubital tunnel release after having failed conservative treatment. Risks and benefits of surgery were discussed with the patient including bleeding, damage to surrounding tissue, infection, need for further surgery as well as risks of anesthesia including pulmonary embolism and even and the patient wished to proceed with surgical intervention. The patient was seen in the pre-operative area by myself. Consent and H&P were completed and updated. The correct extremity was marked in the pre-operative area by myself and all other questions were answered. Operative Narrative: The patient was brought to the operating room by the department of anesthesia. They remained on the portable stretcher and a rolling hand table was brought to the side of the operative extremity. Pre-operative time out was performed indicating the correct patient, procedure and laterality. All in the room agreed. Pre-operative antibiotics were given prior to skin incision. The patient was then drifted off to sleep by the department of anesthesia. A nonsterile tourniquet was then applied to the operative extremity and the right upper extremity was then prepped and draped in normal sterile fashion. The operative extremity was the exsanguinated with an esmarch bandage and the tourniquet was inflated to 250mmHg. 15 blade scalpel was utilized to make a transverse incision on the palmar skin just ulnar to the palmaris longus tendon at the level of the distal wrist crease. Ragnell retractor was then placed radially and blunt dissection was performed to reveal the distal forearm fascia. This was lifted with fine Vincenzo pick ups and Littler tenotomy scissors were then used to open the forearm fascia transversely and a double skin hook was then placed. Hamate finder was placed into the carpal tunnel and then sequential sized dilators were inserted followed by the synovial elevator to separate the flexor tenosynovium from the undersurface of the transverse carpal ligament and a washboard texture was felt. The MicroAire endoscopic carpal tunnel release system gun was the then inserted into the carpal tunnel hugging the deep portion of the transverse carpal ligament in line with the base of the ring finger. Transverse fibers of the ligament were directly visualized. Pressure was applied on the palm to reveal the distal extent of the transverse carpal ligament. The blade was then deployed and the distal half of the transverse carpal ligament was released. The scope was then brought distal again and remaining transverse fibers were incised with the blade. The proximal half of the transverse carpal ligament was then divided and again the scope was advanced distal and remaining transverse fibers were incised with the blade. The radial and ulnar leaflets were directly visualized and mobile consistent with complete release. Tenotomy scissors were then utilized to release the remaining distal forearm fascia under direct visualization taking care to preserve the palmar cutaneous branch of the median nerve. Attention was brought to the medial elbow. 15 blade scalpel was used to incise skin in between the medial epicondyle and olecranon in a curvlinear and longitudinal fashion. Blunt dissection was taken down through subcutaneous tissue with tenotomy scissors and branches of the MABCN were identified and protected. Dissection was carried proximally and the ulnar nerve was identified and released in it's entirety to the the intermuscular septum. Dissection was then carried distally and ayala's ligament was released at the medial epicondyle, the nerve appeared compressed at this location, the patient had an anconeus epitrochlearis and this was divided to decompress the cubital tunnel at the level of the medial epicondyle. Dissection was then carried out further distal and the fascia of the two heads of the FCU were incised and the ulnar nerve was decompressed with [place] and tenotomy scissors and appeared to be tension free. The point of most severe compression was located at the deep fascia of the FCU muscles, the nerve was very flattened, kinked and erythematous at this location after decompression. The elbow was the flexed and extended and the ulnar nerve appeared to be stable in a tension free manner 24cc's of 0.5% bupivacaine was injected into the subcutaneous tissues. Skin closure was performed with interrupted 3-0 Monocryl sutures followed by running 4-0 Monocryl sutures, tourniquet was then let down and the hand had immediate perfusion. Sekou FULTON was present for the case to assist in major portions including manipulation of the extremity and protection of vital neurovascular structures. The patient was then woken by the department of anesthesia and transferred to PACU in stable condition. Guido Maynard D.O. Orthopedic Hand/Upper Extremity Surgeon
[2023-09-15 17:08] VITALS: RESP 16; TEMP 97.2
[2023-09-15 18:01] VITALS: BP 170/74; PULSE 90
== END 2023-09-15 18:03 | disposition home or self-care (01) ==
LOC: OR 14:09
PROVIDERS: ATTEND Orthopaedic Surgery Hand Surgery
DX: G56.03 Carpal tunnel syndrome, bilateral upper limbs (principal); G56.21 Lesion of ulnar nerve, right upper limb; K21.9 Gastro-esophageal reflux disease without esophagitis; F41.9 Anxiety disorder, unspecified; F32.A Depression, unspecified; F17.210 Nicotine dependence, cigarettes, uncomplicated; Z79.899 Other long term (current) drug therapy
CPT/HCPCS: 29848; 64718; J2250; J1100; J2405; J2001; J3010; J1170; J1885; J2704; J0665

== ENCOUNTER 2024-07-13 03:10 | Inpatient (IN) | payer MEDICAID, OTHER ==
[~2024-07-13 03:10] MED LIST changes: -DEXAMETHASONE SOD PHOSPHATE 4 MG/ML 1 ML VIAL IV ONE; -HYDROmorphone 0.5 MG/0.5 ML SYRINGE IVP PRN; -LACTATED RINGERS 1,000 ML IV SCH; -LIDOCAINE 1% (10MG/ML) FOR IV START INTRADERMA PRN; -MIDAZOLAM 2 MG/2 ML VIAL IV PRN; -ONDANSETRON 4 MG/2 ML VIAL IVP ONE; +ONDANSETRON ODT 4 MG TAB ONE
[2024-07-13] MEDS ORDERED: SERTRALINE 100 MG TAB ONE (07:49)
[2024-07-13] MEDS ORDERED: NICOTINE 14MG/24HR PATCH TRANSDERM ONE (07:49)
[2024-07-13] MEDS ORDERED: ARIPiprazole 5 MG TAB ONE ×2 (07:49→19:40)
[2024-07-14] MEDS ORDERED: SERTRALINE 100 MG TAB ONE (07:40)
[2024-07-14] MEDS ORDERED: NICOTINE 14MG/24HR PATCH TRANSDERM ONE ×2 (09:00→18:00)
[2024-07-14] MEDS ORDERED: ARIPiprazole 5 MG TAB ONE (21:06)
[2024-07-14] MEDS ORDERED: ACETAMINOPHEN TAB 325 MG TAB ONE (21:06)
[2024-07-15] MEDS ORDERED: NICOTINE 14MG/24HR PATCH TRANSDERM ONE (07:40)
[2024-07-15] MEDS ORDERED: SERTRALINE 100 MG TAB ONE (07:41)
[2024-07-15] MEDS ORDERED: ARIPiprazole 10 MG TAB ONE (19:43)
[2024-07-16] MEDS ORDERED: ACETAMINOPHEN TAB 325 MG TAB PO PRN
[2024-07-16] MEDS ORDERED: LORazepam 1 MG TAB PO PRN
[2024-07-16] MEDS ORDERED: MAG HYDROX/AL HYDROX/SIMETH 30 ML CUP PO PRN
[2024-07-16] MEDS ORDERED: LORazepam 2 MG/ML INJ IM PRN
[2024-07-16] MEDS ORDERED: SERTRALINE 50 MG TAB ONE (08:24)
[2024-07-16] MEDS ORDERED: NICOTINE 14MG/24HR PATCH TRANSDERM ONE (08:24)
--- NOTE | 2024-07-16 09:00 | P.PN ---
Progress Note - Text Progress Note Date: 07/16/24 The patient was seen chart was reviewed and case discussed with the nursing staff Patient had reported that he and his girlfriend are getting along well and that he is expecting to go home most likely Wednesday He denies that he is having any suicidal thoughts or plans He states that emotionally he is feeling a lot better He states that he intends to take his medications as prescribed Mental Status Exam: General Appearance: Patient appears to be stated age is alert, directable, and cooperative. Behavior: Patient is calmly seated without any agitated behavior. Speech: Patient's speech is fluent and nonpressured. Mood/Affect: Mood is improving affect is congruent Suicidality/Homicidality: Patient reports no suicidal or homicidal ideation, intention, and/or plan Perceptions: Patient denies any visual hallucinations and denies any auditory hallucinations Though content/process: There is no evidence of any delusional thought content and thought process is linear and goal-directed. Memory and concentration: AOX3, grossly intact for the purposes of this session Judgment and insight: Improving mildly Diagnostic impression: Adjustment disorder with mixed emotional features Mood disorder unspecified Rule out personality disorder with borderline traits Polysubstance use disorder by history Plan: -Patient is admitted under involuntary status and now court order to MHU for stabilization of psychiatric symptoms and safety. Patient has not signed adult voluntary form and medication consent and is placed in patient's chart. -NRT - nicotine patch -SW on board for discharge planning. Encourage patient to participate in groups to work on coping skills. Casper Villavicencio MD Active Medications Generic Name Dose Route Start Last Admin Trade Name Freq PRN Reason Stop Dose Admin Acetaminophen 650 mg 07/16/24 00:00 Acetaminophen Tab 325 Mg Tab PO Q4H PRN Pain Al Hydroxide/Mg Hydroxide 30 ml 07/16/24 00:00 Mag Hydrox/Al Hydrox/Simeth 30 Ml Cup PO Q4H PRN GI UPSET Aripiprazole 10 mg 07/16/24 21:00 Aripiprazole 10 Mg Tab PO HS CHAPITO Lorazepam 2 mg 07/16/24 00:00 Lorazepam 1 Mg Tab PO Q4H PRN AGITATION/ ANXIETY Lorazepam 2 mg 07/16/24 00:00 Lorazepam 2 Mg/Ml Inj IM Q4H PRN AGITATION ANXIETY Magnesium Hydroxide 2,400 mg 07/16/24 09:00 Magnesium Hydroxide 2,400 Mg/30 Ml Cup PO DAILY PRN CONSTIPATION Nicotine 1 patch 07/16/24 09:00 Nicotine 14mg/24hr Patch TRANSDERM DAILY CHAPITO Sertraline HCl 100 mg 07/16/24 09:00 Sertraline 100 Mg Tab PO DAILY CHAPITO
[2024-07-16] MEDS: SERTRALINE 100 MG TAB PO SCH (10:39)
[2024-07-16] MEDS: NICOTINE 14MG/24HR PATCH TRANSDERM SCH (10:40)
--- NOTE | 2024-07-16 15:26 | P.CONS ---
History of Present Illness - History of Present Illness This is a pleasant 43 years old male was admitted to the mental health unit with a diagnosis of mood disorder and adjustment disorder secondary to polysubstance abuse Patient was seen walking in the hallway with no problem He denies any specific symptom, please refer to review of system Patient states he smokes 1 pack/day and he was counseled to quit and he agrees and agrees to the nicotine patch, he uses marijuana no other illicit drugs and denies alcohol No labs. Review of Systems Review of systems CONSTITUTIONAL: No fever, no malaise, no fatigue. HEENT: No recent visual problems or hearing problems. Denied any sore throat. CARDIOVASCULAR: No orthopnea, PND, no palpitations, no syncope. PULMONARY: No shortness of breath, no cough, no hemoptysis. GASTROINTESTINAL: No diarrhea, no nausea, no vomiting, no abdominal pain. Normoactive bowel sounds. NEUROLOGICAL: No headaches, no weakness, no numbness. HEMATOLOGICAL: Denies any bleeding or petechiae. GENITOURINARY: Denies any burning micturition, frequency, or urgency. MUSCULOSKELETAL/RHEUMATOLOGICAL: Denies any joint pain, swelling, or any muscle pain. ENDOCRINE: Denies any polyuria or polydipsia. Past Medical History Past Medical History: GERD/Reflux, Renal Disease Additional Past Medical History / Comment(s): Kidney stones History of Any Multi-Drug Resistant Organisms: None Reported Past Surgical History: Heart Catheterization Additional Past Surgical History / Comment(s): heart cath 04/02/21 Past Anesthesia/Blood Transfusion Reactions: No Reported Reaction Smoking Status: Current every day smoker - Past Family History Mother History Unknown: Yes Additional Family Medical History / Comment(s): Back problems Father History Unknown: Yes Additional Family Medical History / Comment(s): Dads mother had heart problems Medications and Allergies Home Medications Medication Instructions Recorded Confirmed Type ARIPiprazole [Abilify] 5 mg PO HS 09/10/23 09/15/23 History Omeprazole 20 mg PO DAILY PRN 09/10/23 09/15/23 History Sertraline [Zoloft] 100 mg PO QAM 09/10/23 09/15/23 History HYDROcodone/APAP 5-325MG [[place] 1 tab PO Q6HR PRN 3 Days #24 tab 09/15/23 Rx 5-325] Allergies Allergy/AdvReac Type Severity Reaction Status Date / Time No Known Allergies Allergy Verified 07/15/24 14:51 Physical Exam GENERAL: The patient is alert and oriented x3, not in any acute distress. Well developed, well nourished. HEENT: Pupils are round and equally reacting to light. EOMI. No scleral icterus. No conjunctival pallor. Normocephalic, atraumatic. No pharyngeal erythema. No thyromegaly. CARDIOVASCULAR: S1 and S2 present. No murmurs, rubs, or gallops. PULMONARY: Chest is clear to auscultation, no wheezing , no crackles. ABDOMEN: Soft, nontender, nondistended, normoactive bowel sounds. No palpable organomegaly. MUSCULOSKELETAL: No joint swelling or deformity. EXTREMITIES: No cyanosis, clubbing, or pedal edema. NEUROLOGICAL: Gross neurological examination did not reveal any focal deficits. SKIN: No rashes. no petechiae. Assessment and Plan Assessment: Adjustment disorder related to substance abuse Nicotine dependence Cannabis use disorder Plan: Patient was counseled to quit the substances including nicotine and he agrees Psychiatric team management for his psych illnesses He is low risk for DVT, no need for prophylaxis We recommend patient follow-up with PCP in 1 week after discharge
[2024-07-16] MEDS ORDERED: ARIPiprazole 10 MG TAB ONE (19:52)
[2024-07-16] MEDS: MAGNESIUM HYDROXIDE 2,400 MG/30 ML CUP PO PRN (20:08)
[2024-07-16] MEDS: ARIPiprazole 10 MG TAB PO SCH (21:16)
[2024-07-17 07:10] VITALS: BP 150/80; PULSE 62; RESP 16; TEMP 97.7
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
--- NOTE | 2024-08-18 08:31 | HP ---
HISTORY AND PHYSICAL HISTORY OF PRESENT ILLNESS: Austin was seen. Chart was reviewed and case discussed with the nursing staff. The patient reports that he has been hospitalized for about 4 days. He says that he had a fight with his girlfriend over the cat. He says that the cat was full of flees and that she wanted him to put him in a wash, which would then release all the flees all over everyone and that he and his girlfriend had a disagreement. He said that he became suicidal. He denies that he has been suicidal in the past. He said that he has had previous 1 psychiatric hospitalization. He says that he is currently on disability. 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 He says that he is doing much better and that he feels like he is back to his old self. He denies that he is having any suicidal ideations or plan. He says that overall he has made good progress. DIAGNOSTIC IMPRESSION: 1. Adjustment disorder with disturbance of affect and conduct. 2. Rule out bipolar disorder. 3. Personality disorder unspecified. 4. Relationship problems. 5. Polysubstance use disorder that includes methamphetamine and cannabis. PLAN: The patient will continue on working on his problem solving skills and communication skills. The patient at this time seems to make some progress and appears to be working towards problem resolution with his girlfriend and work towards appropriate outpatient followup and treatment. Support and direction given. Tentative discharge by Wednesday or Wednesday. KELSEY / CHIP: [id number] /
== END 2024-07-17 13:24 | disposition home or self-care (01) | DRG 751 ==
LOC: 3MHU 03:10
PROVIDERS: ADMIT Psychiatry & Neurology Psychiatry; ATTEND Psychiatry & Neurology Psychiatry
DX: F32.3 Major depressive disorder, single episode, severe with psychotic features (principal); F60.9 Personality disorder, unspecified; F43.23 Adjustment disorder with mixed anxiety and depressed mood; F12.10 Cannabis abuse, uncomplicated; K21.9 Gastro-esophageal reflux disease without esophagitis; F15.10 Other stimulant abuse, uncomplicated; F17.200 Nicotine dependence, unspecified, uncomplicated; Z79.899 Other long term (current) drug therapy; Z87.442 Personal history of urinary calculi; Z71.51 Drug abuse counseling and surveillance of drug abuser; Z71.89 Other specified counseling; Z71.6 Tobacco abuse counseling; Z63.0 Problems in relationship with spouse or partner
CPT/HCPCS: 83036; 99285

== ENCOUNTER → 2024-10-20 | Outpatient (CLI) | payer OTHER ==
--- NOTE | 2024-10-20 11:27 | CT ---
EXAMINATION TYPE: CT abdomen wo/w con DATE OF EXAM: 10/20/2024 COMPARISON: None CLINICAL INDICATION: Male, 43 years old with history of N20.0 CALCULUS OF KIDNEY; PHH, NODULE ON KIDN EY TECHNIQUE: Performed with Oral Contrast and with IV Contrast, patient injected with 100 mL of Isovue 300. CT DLP: [address] CTDI: mGy Automated exposure control for dose reduction was used. FINDINGS: The lung bases are clear. The gallbladder is normal without distention, wall thickening, pericholecystic fluid or gallstones. T here is no biliary ductal dilatation. There is no focal mass or organomegaly involving the liver, pancreas, spleen or adrenal glands. There is a nonobstructing 4 mm calcification in the mid left kidney. There is a 1.5 cm exophytic cyst of the superior left kidney. 2 additional smaller hypodensities are seen within the left kidney that are too small to characterize with certainty and most likely represent cysts. MRI is recommended to further evaluate. The right kidney is unremarkable. Caliber of the abdominal aorta is normal and is no retroperitoneal adenopathy. The bowel loops are normal in caliber and there is no evidence of dilatation or obstruction. No infl ammatory changes are identified in the bowel wall or mesentery. There is no free intraperitoneal air or fluid. The osseous structures and soft tissues are intact. IMPRESSION: 1. Nonobstructing 4 mm left renal calculus. 2. 1.5 cm cyst in the superior lateral aspect left kidney. 3. 2 additional hypodensities within the left kidney too small to characterize a certainty but most p robably represent cysts. MRI of the kidneys is recommended to confirm 4. no acute changes within the abdomen. [facility], , 10/20/2024 11:24 AM
== END | disposition home or self-care (01) ==
LOC: RADCTMAIN 10:02
PROVIDERS: ATTEND Family Medicine
DX: N20.0 Calculus of kidney (principal); N28.1 Cyst of kidney, acquired
CPT/HCPCS: 74170; Q9967